=== PATIENT | female | born 1950 | race Caucasian/White ===

== ENCOUNTER → 2018-12-02 10:46 | Outpatient (CLI) | payer MEDICARE, OTHER, SELFPAY ==
--- NOTE | 2018-12-02 | DI.MG.S_ITS ---
BILATERAL DIGITAL SCREENING MAMMOGRAM 3D/2D WITH CAD: 12/02/2018 CLINICAL: Routine screening. Family history of breast cancer. Comparison is made to exams dated: 11/01/2017 mammogram, 02/27/2017 mammogram, 08/03/2016 mammogram, and 08/01/2015 mammogram - [facility]. There are scattered fibroglandular elements in both breasts. Current study was also evaluated with a Computer Aided Detection (CAD) system. There are benign calcifications in both breasts. No significant masses, calcifications, or other findings are seen in either breast. There has been no significant interval change. IMPRESSION: There is no mammographic evidence of malignancy. A 1 year screening mammogram is recommended. This exam was interpreted at Station ID: [id number]. NOTE: For mammograms, a report in lay terms will be sent to the patient. Approximately 15% of breast malignancies will not be visualized mammographically. In the management of a palpable breast mass, a negative mammogram must not discourage biopsy of a clinically suspicious lesion. Electronically Signed By: Ted snyder/clinton:12/02/2018 11:55:03 letter sent: Normal Exam ACR BI-RADS Category 2: Benign Finding(s) 3342F
== END ==
PROVIDERS: PCP Family Medicine; Visit Provider Family Medicine
DX: Z12.31 Encounter for screening mammogram for malignant neoplasm of breast (principal); Z80.3 Family history of malignant neoplasm of breast
CPT/HCPCS: 77063; 77067

== ENCOUNTER 2019-09-23 10:01 | Day surgery (SDC) | payer MEDICARE, OTHER, SELFPAY ==
--- NOTE | 2019-09-23 | PATH_ITS ---
[facility] Accession Number: [id number] . 01 Material submitted: . colon - RANDOM COLON BIOPSIES . 02 Diagnosis: Random Colon, Biopsies: Colonic mucosa with no diagnostic abnormality. Negative for active, chronic, and microscopic colitis. Negative for dysplasia and malignancy. . MRV 09/24/2019 1230 Local . 02 Electronically signed: . Ken Allison MD, PhD, Pathologist NPI- [id number] . 01 Gross description: . RANDOM COLON BIOPSIES: Received in formalin are multiple fragment(s) of abreu, soft tissue measuring 0.1 x 0.1 x 0.1 cm to 0.2 x 0.2 x 0.2 cm submitted entirely in 1 cassette(s) /[facility] 09/23/2019 2315 Local . 02 Pathologist provided ICD-10: K62.5 . 02 CPT . 505473 Performed at: 01 [facility] [address], [place], [place] [id number] MD Rich Case MD Phone: [phone] Performed at: 02 [facility] [address] [place], [place] [id number] MD Lona Davis MD Phone: [phone]
[2019-09-23 10:23] VITALS: BP 106/68; PULSE 77; RESP 15; TEMP 36.3; O2SAT 98; BMI 27.3
[2019-09-23] MEDS: SODIUM CHLORIDE 0.9% 1,000 ML 21 ML IV (10:33)
[2019-09-23] MEDS: fentaNYL 250 MCG/5 ML INJ IV (11:06)
[2019-09-23] MEDS: MIDAZOLAM 5 MG/5 ML VIAL IV (11:07)
--- NOTE | 2019-09-23 11:26 | PM.HP.1 ---
History of Present Illness History of Present Illness Date Patient Seen: 09/23/19 Time Patient Seen: 11:26 Chief complaint: [id number] Narrative: History of adenomatous colon polyps, rectal bleeding and urgency with looser stools Patient History Surgical History (Updated 12/31/17 @ 05:37 by Conversion Provider) Status post hemorrhoidectomy (09/16/17) Family & Social History Social History: household members spouse Tobacco & Substance use: Smoking Status Former smoker alcohol intake current alcohol intake frequency other Substance Use Type does not use Meds Home Medications and Allergies Home Medications Medication Instructions Recorded Confirmed Type Stelara 45 mg SQ SEEINSTR #0 06/14/17 09/23/19 History atorvastatin [Lipitor] 20 mg PO HS #0 06/14/17 09/23/19 History hydrochlorothiazide 25 mg PO BEDTIME #0 06/14/17 09/23/19 History lisinopril 10 mg PO BEDTIME #0 06/14/17 09/23/19 History methotrexate sodium 15 mg PO QWEEK #0 09/10/17 09/23/19 History escitalopram oxalate 20 mg PO BEDTIME #0 09/12/17 09/23/19 History oxycodone 5 mg PO PRN PRN 09/23/19 09/23/19 History Allergies Allergy/AdvReac Type Severity Reaction Status Date / Time adhesive tape [ADHESIVE TAPE] Allergy Severe LISTED Verified 09/23/19 10:14 SEVERE WITHOUT REACTION GIVEN hydrocodone [HYDROCODONE] Allergy Mild rash Verified 09/23/19 10:14 latex AdvReac Verified 09/23/19 10:13 Exam Vital Signs (past 8 hours): - 09/23/19 10:23 Temperature 97.3 F L Pulse Rate 77 Respiratory Rate 15 Blood Pressure 106/68 Pulse Oximetry 98 Oxygen Delivery Method Room Air Narrative Exam Narrative: Oropharynx free of lesions Chest clear to auscultation percussion Cardiac exam reveals no S3 or murmur Assessment & Plan Assessment & Plan narrative: History of adenomatous colon polyps with rectal bleeding and urgency with loose stools need for colonoscopy with biopsy. Risks, benefits, alternatives have been explained.
--- NOTE | 2019-09-23 11:28 | PM.OP.ENDO ---
Operative Date/Time/Diagnoses Date of procedure: 09/23/19 Time of procedure: 11:29 Pre-op diagnosis: See indication Procedure & Clinicians Study performed: Colonoscopy Same procedure as scheduled: Yes Indications: History of adenomatous colon polyps with rectal bleeding urgency and looser stools Surgeon: Padmaja Kerns Procedure Notes Procedure in detail: After informed consent was obtained the patient was placed in left lateral decubitus position. The video colonoscope was introduced the rectum slowly advanced to cecum. Preparation was good. On slow withdrawal mucosa was carefully examined. The scope was removed. The patient tolerated procedure well. Blood loss none Complications none Sedation Total sedation time 20 minutes Versed 4 mg fentanyl 100 mg IV titration Findings 1. Totally normal colonic mucosa biopsies taken to rule out microscopic colitis randomly 2. Mild perianal inflammation on retroflexed view without significant hemorrhoids. Anal sphincter is somewhat loose as well. Will merely await biopsies and contact the patient. She is doing quite well on 1 Imodium a day having no accidents and having less urgency. I told her she can take 2 per day if she needs to.
[2019-09-23 11:57] VITALS: BP 95/63; PULSE 75; RESP 16; TEMP 37.1; O2SAT 97
[2019-09-23 12:08] VITALS: BP 92/50; PULSE 65; RESP 16; O2SAT 95
[2019-09-23 12:25] VITALS: BP 88/57; PULSE 70; RESP 16; O2SAT 98
[2019-09-23 12:38] VITALS: BP 96/58; PULSE 80; RESP 16; O2SAT 96
== END 2019-09-23 12:43 | disposition home or self-care (01) ==
PROVIDERS: PCP Family Medicine; Visit Provider Internal Medicine Gastroenterology
PROC: 0DJD8ZZ Inspection of Lower Intestinal Tract, Via Natural or Artificial Opening Endoscopic (ICD-10-PCS; CPT 45378; principal; 2019-09-23 11:00)
DX: K62.5 Hemorrhage of anus and rectum (principal); R19.4 Change in bowel habit; Z86.010 Personal history of colon polyps; I10 Essential (primary) hypertension; M79.7 Fibromyalgia; E78.00 Pure hypercholesterolemia, unspecified; E03.9 Hypothyroidism, unspecified; L40.9 Psoriasis, unspecified
CPT/HCPCS: 45378; J2250; J3010

== ENCOUNTER → 2020-03-14 12:05 | Outpatient (CLI) | payer MEDICARE, OTHER, SELFPAY ==
--- NOTE | 2020-03-14 12:22 | DI.MG.S_ITS ---
Patient Name: NIDIA OWENS date: 1950 Sex: F Attending Physician: LELIA Indications: Date: 03/14/2020 12:19 At the request of: STEVE ROWELL Procedure: MM screening mammo BI BILATERAL DIGITAL SCREENING MAMMOGRAM 3D/2D WITH CAD: 03/14/2020 CLINICAL: Routine screening. Family history of breast cancer. Comparison is made to exams dated: 12/02/2018 mammogram, 11/01/2017 mammogram, and 02/27/2017 mammogram - [facility]. There are scattered fibroglandular elements in both breasts. Current study was also evaluated with a Computer Aided Detection (CAD) system. There is a new 4 mm oval asymmetry with punctate calcifications in the left breast sub-areolar depth inferior region seen on the mediolateral oblique view only. No other significant masses, calcifications, or other findings are seen in either breast. IMPRESSION: INCOMPLETE: NEEDS ADDITIONAL IMAGING EVALUATION The new 4 mm oval asymmetry in the left breast is indeterminate. Additional views with possible ultrasound are recommended. This exam was interpreted at Station ID: [id number]. NOTE: For mammograms, a report in lay terms will be sent to the patient. Approximately 15% of breast malignancies will not be visualized mammographically. In the management of a palpable breast mass, a negative mammogram must not discourage biopsy of a clinically suspicious lesion. Electronically Signed By: Katelyn palacios/clinton:03/14/2020 17:47:39 letter sent: Additional Imaging Needed ACR BI-RADS Category 0: Incomplete 3340F Continued Report - Page 2 of 2 Patient Name: NIDIA OWENS date: 1950 Sex: F Attending Physician: LELIA Indications: Date: 03/14/2020 12:19 At the request of: STEVE ROWELL Procedure: MM screening mammo BI
== END ==
PROVIDERS: PCP Family Medicine; Referring Provider Family Medicine; Visit Provider Family Medicine
DX: Z12.31 Encounter for screening mammogram for malignant neoplasm of breast (principal); Z80.3 Family history of malignant neoplasm of breast
CPT/HCPCS: 77063; 77067

== ENCOUNTER → 2020-04-05 12:14 | Outpatient (CLI) | payer MEDICARE, OTHER, SELFPAY ==
--- NOTE | 2020-04-05 | DI.MG.S_ITS ---
UNILATERAL LEFT DIGITAL DIAGNOSTIC MAMMOGRAM 3D/2D WITH ADDITIONAL VIEWS: 04/05/2020 Comparison is made to exams dated: 03/14/2020 mammogram, 12/02/2018 mammogram, and 11/01/2017 mammogram - [facility]. There are scattered fibroglandular elements in left breast. The previously seen asymmetry in the left breast is no longer visualized and presumably represents normal superimposed breast tissue. No significant masses, calcifications, or other findings are seen in the breast. IMPRESSION: NEGATIVE There is no mammographic evidence of malignancy. A 1 year screening mammogram is recommended. This exam was interpreted at Station ID: [id number]. NOTE: For mammograms, a report in lay terms will be sent to the patient. Approximately 15% of breast malignancies will not be visualized mammographically. In the management of a palpable breast mass, a negative mammogram must not discourage biopsy of a clinically suspicious lesion. Electronically Signed By: Anthony whitaker/clinton:04/05/2020 13:26:58 letter sent: Normal Exam ACR BI-RADS Category 1: Negative 3341F
== END ==
PROVIDERS: PCP Family Medicine; Referring Provider Family Medicine; Visit Provider Family Medicine
DX: R92.8 Other abnormal and inconclusive findings on diagnostic imaging of breast (principal)
CPT/HCPCS: 77065; G0279

== ENCOUNTER → 2021-03-20 15:22 | Outpatient (CLI) | payer MEDICARE, OTHER, SELFPAY ==
--- NOTE | 2021-03-20 15:26 | DI.MG.S_ITS ---
BILATERAL DIGITAL SCREENING MAMMOGRAM 3D/2D WITH CAD: 03/20/2021 CLINICAL: Routine screening. Family history of breast cancer. Comparison is made to exams dated: 04/05/2020 mammogram, 03/14/2020 mammogram, 12/02/2018 mammogram, 11/01/2017 mammogram, 02/27/2017 mammogram, and 08/03/2016 mammogram - [facility]. There are scattered fibroglandular elements in both breasts. Current study was also evaluated with a Computer Aided Detection (CAD) system. There is a benign calcification in the right breast. There also are benign calcifications in the left breast. No significant masses, calcifications, or other findings are seen in either breast. There has been no significant interval change. IMPRESSION: BENIGN There is no mammographic evidence of malignancy. A 1 year screening mammogram is recommended. This exam was interpreted at Station ID: [id number]. NOTE: For mammograms, a report in lay terms will be sent to the patient. Approximately 15% of breast malignancies will not be visualized mammographically. In the management of a palpable breast mass, a negative mammogram must not discourage biopsy of a clinically suspicious lesion. Electronically Signed By: Tristen jain/clinton:03/20/2021 17:07:02 letter sent: Normal Exam ACR BI-RADS Category 2: Benign Finding(s) 3342F
== END ==
PROVIDERS: PCP Family Medicine; Referring Provider Family Medicine; Visit Provider Family Medicine
DX: Z12.31 Encounter for screening mammogram for malignant neoplasm of breast (principal); Z80.3 Family history of malignant neoplasm of breast
CPT/HCPCS: 77063; 77067

== ENCOUNTER → 2022-06-12 12:39 | Outpatient (CLI) | payer MEDICARE, OTHER, SELFPAY ==
--- NOTE | 2022-06-12 12:42 | DI.MG.S_ITS ---
BILATERAL DIGITAL SCREENING MAMMOGRAM 3D/2D WITH CAD: 06/12/2022 CLINICAL: Routine screening. Family history of breast cancer. Comparison is made to exams dated: 03/20/2021 mammogram, 04/05/2020 mammogram, 03/14/2020 mammogram, and 12/02/2018 mammogram - [facility]. There are scattered areas of fibroglandular density in both breasts (category b / 25%-50% glandular tissue). Current study was also evaluated with a Computer Aided Detection (CAD) system. There is a benign calcification in the right breast. There also are benign calcifications in the left breast. No significant masses, calcifications, or other findings are seen in either breast. There has been no significant interval change. IMPRESSION: BENIGN There is no mammographic evidence of malignancy. A 1 year screening mammogram is recommended. Based on the Tyrer Cuzick model (a risk assessment model) the patient's lifetime risk is 11.8% and her 10 year risk is 8.8%. According to the ACR, ACS, and NCCN guidelines, an annual breast MRI exam along with mammogram is recommended if the patient's lifetime risk is 20% or greater. This exam was interpreted at Station ID: [id number]. NOTE: For mammograms, a report in lay terms will be sent to the patient. Approximately 15% of breast malignancies will not be visualized mammographically. In the management of a palpable breast mass, a negative mammogram must not discourage biopsy of a clinically suspicious lesion. Electronically Signed By: Ted snyder/clinton:06/13/2022 07:34:28 letter sent: Normal Exam ACR BI-RADS Category 2: Benign Finding(s) 3342F
== END ==
PROVIDERS: PCP Family Medicine; Referring Provider Family Medicine; Visit Provider Family Medicine
DX: Z12.31 Encounter for screening mammogram for malignant neoplasm of breast (principal); Z80.3 Family history of malignant neoplasm of breast
CPT/HCPCS: 77063; 77067

== ENCOUNTER → 2023-05-07 11:17 | Outpatient (CLI) | payer MEDICARE, OTHER, SELFPAY ==
[2023-05-07 11:56] LABS: Add Manual Diff / Slide Review NO; Basophils Absolute Auto 100 /uL (0-100); Basophils Percent Auto 1.3 % (0-2); Eosinophils Absolute Auto 500 /uL (0-450); Eosinophils Percent Auto 8.2 % (2-4); Hematocrit 39.3 % (36-46); Hemoglobin 13.3 g/dL (12.0-16.0); Lymphocytes Absolute Auto 1800 /uL (1100-4500); Lymphocytes Percent Auto 26.8 % (25-40); Mean Corpuscular HGB Conc 33.8 % (30-36); Mean Corpuscular Hemoglobin 31.4 PG (26-34); Mean Corpuscular Volume 92.8 fL (80-100); Monocytes Absolute Auto 600 /uL (0-900); Monocytes Percent Auto 9.7 % (3-14); Neutrophils Absolute Auto 3600 /uL (1500-7000); Platelet Count 190 X10^3/uL (150-400); Red Blood Cell Count 4.24 X10^6/uL (4.0-5.2); Red Cell Distribution Width 15.5 % (11.6-14.8); White Blood Cell Count 6.7 X10^3/uL (4.5-11.0)
[2023-05-07 12:04] LABS: Blood Urea Nitrogen 16 mg/dL (7-17); Calcium 8.9 mg/dL (8.4-10.2); Carbon Dioxide 27 mmol/L (22-32); Chloride 104 mmol/L (98-107); Estimated Glomerular Filt Rate > 60 mL/min (>60); Glucose 89 mg/dL (80-110); HEMOLYSIS < 15 (0-50); Sodium 136 mmol/L (137-145)
== END ==
PROVIDERS: PCP Family Medicine; Referring Provider Orthopaedic Surgery; Visit Provider Orthopaedic Surgery
DX: Z01.812 Encounter for preprocedural laboratory examination (principal); R73.9 Hyperglycemia, unspecified; Z01.818 Encounter for other preprocedural examination; N39.0 Urinary tract infection, site not specified
CPT/HCPCS: 36415; 80048; 83036; 85025; 93005; 93010

== ENCOUNTER → 2023-05-28 14:33 | Outpatient (CLI) | payer MEDICARE, OTHER, SELFPAY ==
--- NOTE | 2023-05-28 14:37 | DI.RAD.S_ITS ---
PROCEDURE: XR CHEST 2V INDICATIONS: Essential (primary) hypertension TECHNIQUE: 2 views of the chest were acquired. COMPARISON: [facility], , CHEST 2 VIEW, 08/03/2016, 11:47. FINDINGS: Surgical changes and devices: Partially visualized cervical spine fixation hardware Lungs and pleura: Lungs are clear. No pleural effusions or pneumothorax. Elevated left hemidiaphragm. Mediastinum: Mediastinal contours are normal. Heart size is normal. Bones and chest wall: No suspicious bony abnormalities. Soft tissues appear unremarkable. IMPRESSION: No acute cardiopulmonary abnormality is seen. Dictated by: Raquel Crawford MD, PhD on 05/28/2023 at 14:49 Approved by: Raquel Crawford MD, PhD on 05/28/2023 at 14:49
== END ==
PROVIDERS: PCP Family Medicine; Referring Provider Family Medicine; Visit Provider Family Medicine
DX: I10 Essential (primary) hypertension (principal)
CPT/HCPCS: 71046

== ENCOUNTER → 2023-07-31 15:00 | Outpatient (CLI) | payer MEDICARE, OTHER, SELFPAY ==
--- NOTE | 2023-07-31 | DI.CT.S_ITS ---
PROCEDURE: CT CHEST WO CON INDICATIONS: ANEURYSM TECHNIQUE: Noncontrast 5 mm thick sections acquired from the pulmonary apices to the posterior costophrenic angles. 1 mm lung window, 5 mm thick coronal and sagittal and 7 mm axial MIP reformats were then acquired. For radiation dose reduction, the following was used: automated exposure control, adjustment of mA and/or kV according to patient size. COMPARISON: None. FINDINGS: Image quality: Excellent. Lungs and pleura: No acute air space opacities. No pleural effusions or pneumothorax. Central and peripheral airways are patent and normal in caliber. Mediastinum: Heart size is normal. The coronary arteries have atherosclerotic calcifications. Mitral annular calcifications. The ascending aorta measures 3.8 cm, within normal limits. No pericardial effusion. No mediastinal adenopathy by size criteria. Thoracic aorta and central pulmonary arteries are normal in size. Esophagus is normal in caliber. No hiatal hernia. Bones and chest wall: No suspicious bony lesions. Rightward curvature of the thoracic spine. No vertebral body compression fractures. No axillary or supraclavicular adenopathy by size criteria. No thyroid nodules which require sonographic follow up, per consensus guidelines. Upper Abdomen: Visualized upper abdominal solid organs and bowel loops appear normal in the absence of contrast. IMPRESSION: 1. No acute abnormality. 2. No aneurysm identified. 3. Coronary artery calcifications and mitral annular calcifications. Dictated by: Matt Meza M.D. on 07/31/2023 at 16:39 Approved by: Matt Meza M.D. on 07/31/2023 at 16:43
--- NOTE | 2023-07-31 | DI.MG.S_ITS ---
BILATERAL DIGITAL SCREENING MAMMOGRAM 3D/2D WITH CAD: 07/31/2023 CLINICAL: Routine screening. Family history of breast cancer. Comparison is made to exams dated: 06/12/2022 mammogram, 03/20/2021 mammogram, 04/05/2020 mammogram, and 03/14/2020 mammogram - [facility]. There are scattered areas of fibroglandular density in both breasts (category b / 25%-50% glandular tissue). Current study was also evaluated with a Computer Aided Detection (CAD) system. There is a benign calcification in the right breast. There also are benign calcifications in the left breast. No significant masses, calcifications, or other findings are seen in either breast. There has been no significant interval change. IMPRESSION: BENIGN There is no mammographic evidence of malignancy. A 1 year screening mammogram is recommended. Based on the Tyrer Cuzick model (a risk assessment model) the patient's lifetime risk is 11.1% and her 10 year risk is 9.1%. According to the ACR, ACS, and NCCN guidelines, an annual breast MRI exam along with mammogram is recommended if the patient's lifetime risk is 20% or greater. This exam was interpreted at Station ID: [id number]. NOTE: For mammograms, a report in lay terms will be sent to the patient. Approximately 15% of breast malignancies will not be visualized mammographically. In the management of a palpable breast mass, a negative mammogram must not discourage biopsy of a clinically suspicious lesion. Electronically Signed By: Jc hatch/clinton:08/01/2023 11:28:14 letter sent: Normal Exam ACR BI-RADS Category 2: Benign Finding(s) 3342F
== END ==
PROVIDERS: PCP Family Medicine; Referring Provider Family Medicine; Visit Provider Family Medicine
DX: Z12.31 Encounter for screening mammogram for malignant neoplasm of breast (principal); I72.9 Aneurysm of unspecified site; Z80.3 Family history of malignant neoplasm of breast; I25.10 Atherosclerotic heart disease of native coronary artery without angina pectoris
CPT/HCPCS: 71250; 77063; 77067

== ENCOUNTER 2023-10-04 11:03 | Day surgery (SDC) | payer MEDICARE, OTHER, SELFPAY ==
[2023-09-25 09:31] VITALS: BMI 30.2
[2023-10-04] VITALS (19 sets, daily range): BP systolic 98–151; BP diastolic 61–83; PULSE 62–80; RESP 10–16; TEMP 36.2–37; O2SAT 93–97; BMI 31.1
--- NOTE | 2023-10-04 06:00 | DI.RAD.S_ITS ---
PROCEDURE: XR KNEE RT 1TO2V INDICATIONS: TKA TECHNIQUE: 2 view(s) of the knee acquired. COMPARISON: [facility], , KNEE 3V RIGHT, 01/18/2014, 14:18. FINDINGS: Bones: Patient is status post knee joint arthroplasty. Hardware components are in expected positions. Visualized bony structures are intact. Soft tissues: Overlying postoperative changes are noted. IMPRESSION: Expected post-operative appearance of a knee arthroplasty. Dictated by: Karyn Yuan M.D. on 10/04/2023 at 17:32 Approved by: Karyn Yuan M.D. on 10/04/2023 at 17:32
[2023-10-04] MEDS: LACTATED RINGERS 1,000 ML 42 ML IV ×2 (11:52→17:49)
[2023-10-04] MEDS: CELECOXIB 200 MG CAPSULE PO (11:53)
[2023-10-04] MEDS: ACETAMINOPHEN 325 MG TABLET 975 MG PO (11:53)
[2023-10-04] MEDS: VANCOMYCIN 1,000 MG/200 ML PIGGYBACK 200 MG IV (11:56)
[2023-10-04] MEDS: SCOPOLAMINE 1 PATCH TOP (12:36)
--- NOTE | 2023-10-04 13:11 | PM.PREOP ---
Pre-operative Note Interval Note History & Physical reviewed/Exam performed by Physician: Yes Changes to H&P: No
--- NOTE | 2023-10-04 13:12 | PM.OP.1 ---
Operative Date/Time/Diagnoses Date of procedure: 10/04/23 Time of procedure: 13:25 Pre-op diagnosis: Severe right knee OA Post-op diagnosis: same Procedure & Clinicians Procedure: Right total knee arthroplasty robotic assisted with Cori Same procedure as scheduled: Yes Indications: The patient has had progressively worsening right knee pain with radiographic changes consistent with arthritis. Non-operative management has failed and the patient has requested total knee replacement. The risks, benefits and alternatives to surgery were discussed with the patient prior to proceeding. Risks discussed included, but were not limited to, failure to relieve pain, stiffness, infection, nerve damage, deep venous thrombosis, pulmonary embolism, stroke, coma, heart attack, permanent paralysis and , as well as the potential need for eventual revision of the prosthetic. Surgeon: Mary Medellin Quality Nurse: Joby So Anesthesia Type: General Operative Notes Findings: Severe right knee osteoarthritis, good stability, adequate bone Closure Type: primary Specimen(s): none sent Prosthetic devices, grafts, tissues, transplants, or devices: Medellin and nephew suture and a BCS 2 size 7 femur, size 6 tibia, +9 poly, 35 x 7-1/2 mm patella Estimated Blood Loss (mL): 250 Tourniquet time (min): 118 Procedure in detail: The patient was seen in the pre-operative area, where the patient identified the right knee as the operative site and this was marked with my initials. The patient received pre-operative antibiotics, and was taken to the operating room and placed on the operative table in the supine position. After satisfactory anesthesia, a night time nanny out was performed. The right leg was encircled with a tourniquet about the proximal thigh, and the leg was prepared from the toes to the tourniquet with ChloroPrep in the usual fashion and draped through sterile drapes. The leg was elevated and exsanguinated with Eschmark bandage and the tourniquet inflated to [250] mmHg pressure. A PA was used during the procedure and was essential for intraoperative retraction and safe implantation of the components. The knee was approached through an approximately 18 cm incision centered over the patella and carried into the knee through a medial parapatellar arthrotomy. A portion of the medial and lateral meniscus was resected. Soft tissue was carefully mobilized around the patella the patella was measured with a caliper. Bone was resected from the patella and the patellar height was reconstituted with up an appropriate sized patellar component. A cover was then placed on the patella. A small amount of additional medial and lateral meniscus was resected. Osteophytes were removed from femur. PCL was released. José Miguel Vazquezy pins were placed in the femur and in the tibia the guide was placed in preparation for a robotic assisted navigation. The femur and the tibia were carefully mapped. The patient was placed through a range of motion in the center of rotation was determined. The femur was then carefully stressed and stressed and nonstress range of motion of the knee was collected and used for optimizing the intraoperative plan for the resection of the distal femur and proximal tibia. A plan was taken and progressively improved. Retractors were carefully placed. A bur was used for the distal femoral resection. The patient has AP diameter of the femur was slightly larger than the medial to lateral. A size 7 femoral component appeared to provide good holiness of the distal femoral guidiville anatomy. Finishing cuts were made for a size 7 femur. Retractors were carefully placed around the tibia and then the tibia was carefully navigated and the tibial cut was performed without difficulty. Residual lateral and medial meniscus was resected. The patient was placed in extension residual medial and lateral meniscus as well as any residual bone was carefully resected. [No] additional tibia was resected. Hemostasis was achieved especially posteriorly. Additional local was injected into the posterior capsule. The femoral component was trial was placed and the notch was finished. There was no evidence of notching. The posterior osteophytes and soft tissues were then removed. The posterior capsule was injected with part of a mixture of 60 ml 0.25% Marcaine mixed with 20 ml Exparel for post operative pain control. The remainder of this mixture was injected into the capsule and subcutaneous tissues during cement curing. The tibial and femoral components were then placed and the knee placed through a range of motion. Range of motion was [0-130], with good stability throughout the range. The trials were then removed, and the tibia was finished. The bone was prepared with pulsatile lavage, and dried with a sponge. Cement was applied and the final prosthetics placed. Excess cement was removed during and after cement curing. A brief Betadine soak was performed. After confirming there was no extruded cement posteriorly, the final tibial insert was placed. The knee was copiously irrigated and the tourniquet deflated. Hemostasis was obtained with the Bovie cautery. The capsule was closed with interrupted nonabsorbable suture. The subcutaneous layer was closed with barbed sutures, and the skin with a running 3-0 V-Lock suture and Surgical glue. An Aquacel Ag dressing was applied and the patient was taken to recovery having tolerated the procedure well. Complications: none Post-operative Condition: stable Disposition: Acute Care Plan for aftercare: The patient will be maintained on a standard total knee replacement protocol with weight bearing as tolerated. The patient will receive aspirin and sequential compression devices for DVT prophylaxis. The patient will be discharged home when safe for the home environment.
[2023-10-04] MEDS: CEFAZOLIN 2 GM/100 ML PREMIX 100 ML IV ×2 (13:42→21:27)
[2023-10-04] MEDS: TRANEXAMIC ACID 1,000 MG VIAL 1000 MG INJ ×2 (13:42→16:00)
--- NOTE | 2023-10-04 14:02 | SUR.OPER ---
Supine on padded OR bed. Pillow under head, arms secured on padded armboards <90 degree abduction. Safety belt across torso. Non-operative leg secured with tape over blanket over lower leg. Operative leg secured in Baldomero positioner. Foam padded brace at thigh of operative leg.
[2023-10-04] MEDS: BUPIVACAINE LIPOSOME 266 MG/20 ML VIAL INJ (14:06)
[2023-10-04] MEDS: BUPIVACAINE 0.25% (PF) 60 ML, EPINEPHrine 0.3 MG INJ (14:06)
[2023-10-04] MEDS: LACTATED RINGERS 1,000 ML 100 ML IV (18:53)
[2023-10-04] MEDS: DOCUSATE 100 MG CAPSULE PO (21:25)
[2023-10-04] MEDS: ASPIRIN EC 81 MG TABLET PO (21:25)
[2023-10-04] MEDS: ATORVASTATIN 20 MG TABLET 10 MG PO (21:25)
[2023-10-04] MEDS: ESCITALOPRAM 10 MG TABLET 20 MG PO (21:27)
[2023-10-05 00:38] VITALS: BP 109/62; PULSE 65; RESP 16; TEMP 36.7; O2SAT 96
[2023-10-05] MEDS: LACTATED RINGERS 1,000 ML 100 ML IV (02:00)
--- NOTE | 2023-10-05 02:51 | PC.NURSE ---
Patient drowsy at shift change but alert and oriented at time of assessment but does seem forgetful and will ask same question several times during a conversation. Breath sounds diminished but CTA and was on 4L/min oxygen per NC at shift change but have been lowering oxygen to wean off and is currently at 2L/min with sat at 96% so now decreased to 1L/min; on continuous oximetry. HRR but at bedtime BP was soft with systolic in the 90's so both HCTZ and Lisinopril held. Denied nausea. BT present and has already passed flatus. Did have difficulty urinating and at 2300 had bladder scan of 490. Attempted to in/out cath x4 (3 different RN's attempted) before able to get straight cath in and 510cc urine drained from bladder. Is able to assist with repositioning. Did get up to BSC with walker and 2 assists. Aquacel dressing to right knee w/arley wrap covering is CDI. CMS is intact. Wearing bilateral calf SCD's. Stated pain was tolerable at 3-4/10 and declined offer of pain medications. Fall risk score is moderate and bed alarm is activated.
[2023-10-05] MEDS: CEFAZOLIN 2 GM/100 ML PREMIX 100 ML IV (05:52)
[2023-10-05] MEDS: LEVOTHYROXINE 50 MCG TABLET PO (05:52)
[2023-10-05] MEDS: OXYCODONE IR 5 MG TABLET PO (06:36)
[2023-10-05] MEDS: DOCUSATE 100 MG CAPSULE PO ×2 (08:56→20:26)
[2023-10-05] MEDS: ASPIRIN EC 81 MG TABLET PO ×2 (09:00→20:25)
--- NOTE | 2023-10-05 10:10 | PT.IIE ---
Current Diagnoses Unilateral primary osteoarthritis, right knee (10/04/23) Surgery Performed Operation Date: 10/04/23 12:30 Actual Procedures p Total Knee Arthroplasty - Robot(Right) - Mary Medellin MD Surgical History (Last Updated 09/25/23 @ 10:11 by Doretha Urena, RN) H/O laminectomy History of biopsy History of excision of pilonidal cyst History of hysterectomy History of lumbar spinal fusion History of orthopedic surgery Hx of bilateral cataract extraction Hx of colonoscopy Hx of fusion of cervical spine Hx of tonsillectomy S/P cataract extraction and insertion of intraocular lens Status post hemorrhoidectomy (09/16/17) Medical History (Last Updated 09/26/23 @ 07:30 by Doretha Urena, JENI) Arthritis Basal cell carcinoma Chronic diarrhea Cystocele with rectocele Depression History of Mohs micrographic surgery for skin cancer HLD (hyperlipidemia) HTN (hypertension) Psoriatic arthritis Physical Therapy Inpatient Evaluation/Re-Eval M1 PT/OT-IP Prior Functional Status Start: 10/05/23 12:44 Freq: NEEDED Status: Active Protocol: Document 10/05/23 10:10 AB (Rec: 10/05/23 12:59 AB [id number]) Medical Review Prior Functional Status Medical History Reviewed Yes Communication able to make needs known; pt is slightly sleepy with confusion Mobility and Gait pt's spouse and son in room and provided PLOF and home set up. stated that pt was independent with all mobilities and ambulation without AD Social History Household Members spouse Living Arrangements House Number of Floors (Floors) Two Floors Number of Stairs To Enter/Railing? 1 step to enter the house 14 steps B rails to get to 2nd floor bedroom Home Environment Standard Height Toilet,Tub/ Shower Home Equipment Front Wheel Walker,Raised Toilet Seat w/Armrests,Shower Seat with Backrest,Hand Held Shower,Grab Bars In Shower M2 PT-IP Current Condition Start: 10/05/23 12:44 Freq: NEEDED Status: Active Protocol: Document 10/05/23 10:10 AB (Rec: 10/05/23 12:59 AB [id number]) Physical Therapy Current Condition Current Condition Evaluation Date 10/05/23 Treatment Diagnosis s/p R TKA; difficulty in walking Onset Date 10/04/23 M3 PT-IP Subjective Start: 10/05/23 12:44 Freq: NEEDED Status: Active Protocol: Document 10/05/23 10:10 AB (Rec: 10/05/23 12:59 AB [id number]) Subjective Physical Therapy Visit Type Type Initial Evaluation Visit Start Time 10:10 Visit Stop Time 11:10 Number of SWEEP PRESS OPERATOR Visits 0 Physical Therapy Visit Comments Patient Comments agreeable to do PT Therapy Pain Assessment Pain When Pain Assessed At Rest Pain Present Pain Present Pain Reported Location right knee Intensity 8 Scale Used Numeric (0 - 10) Pain Management Techniques Apply Cold,Distraction, Modification of Treatment,Re- positioning,Timing of Activity with Medications M4 PT-IP Mobility and Gait Start: 10/05/23 12:44 Freq: NEEDED Status: Active Protocol: Document 10/05/23 10:10 AB (Rec: 10/05/23 12:59 AB [id number]) PT-Bed Mobility Assessment Sit to Supine Sit to Supine Maximum Assistance,1 Person Assistance,Head of Bed Elevated PT-Transfer Assessment Sit to and From Stand Sit to and from Stand Maximum Assistance,1 Person Assistance,2 Person Assistance ,Use of Upper Extremities Equipment Transfer Assistive Device Gait Belt,Front Wheeled Walker Orthotic/Prosthetic Devices or Brace: No Transfers Transfer Destination Toilet Transfer Technique ambulated Transfer Ability Level of Assist Maximum Assistance,1 Person Assistance,Use of Upper Extremities Comments Mobility Comments pt supine in bed and is very restless and felisa confusion and was trying to get up out of the bed. pt instructed to stay in bed for safety until PT is ready to assist her. pt 's spouse and son in room. obtained PLOF and home set up from family. pt requested to use the toilet . completed supine to sit max A and max cues. required 3 attempts to complete task. pt completed sit to stand x 3 attempts max A x 1-2 and max cues. pt with heavy UE use and not pushing LE to stand. max cues and assist provided. pt ambulated to the toilet using FWW max a and max cues. pt with forward trunk position with increases with ambulation distance and family stated that pt has back problems. also noted RLE external rotation. cued pt to correct. pt with decrease cognition and with difficutly following instructions. also needed max A for FWW use. pt required max A for controlled descent to the toilet. required assist with brief management. required max A x 1-2 for sit to stand from the toilet using grab bar. 3 attempts needed to complete task. pt required max A for standing balance using FWW for support while NAC assisted pt with hygiene care and brief management. pt ambulated to the chair using FWW max A and max cues. positioned pt on the chair. call light and table placed within reach. informed pt and family that pt is not ready to d/c home at this time. caregiver training set up this afternoon at ~ 130 -2pm Gait Assessment Gait Gait Assistance Required: Maximum Assistance Distance (Feet) 20 Able to Maintain Weight Bearing Status Yes During Gait Assistive Devices Assistive Device Gait Belt,Front Wheeled Walker Orthotic/Prosthetic Devices or Brace: No Gait Deviations General Gait Pattern Antalgic,Decreased Stride Length,Decreased Feet Clearance,Flexed Trunk Factors Limiting Gait Function Factors Limiting Gait Function Decreased Activity Tolerance, Decreased Strength,Difficulty Following Directions,Limited Range of Motion,Pain,Poor Balance,Poor Safety Awareness PT-Balance Assessment Sitting Balance and Reactions Static Sitting Balance Ability Good Dynamic Sitting Balance Ability Fair Standing Balance and Reactions Static Standing Balance Ability Poor Dynamic Standing Balance Ability Poor Device Used FWW M5 PT-IP Objective Assessments Start: 10/05/23 12:44 Freq: NEEDED Status: Active Protocol: Document 10/05/23 10:10 AB (Rec: 10/05/23 12:59 AB [id number]) Orientation Orientation/Cognition Level of Alertness Confusional State Orientation Name Safety Awareness Decreased Safety Awareness Memory Description Short Term Impaired Gross Range of Motion Lower Extremity ROM Assessment Within Functional Limits Strength Lower Extremity Strength Assessment Right Impaired Hip 3+/5 Knee 3+/5 Muscle Tone Muscle Tone WNL Yes M6 PT-IP Treatment Start: 10/05/23 12:44 Freq: NEEDED Status: Active Protocol: Document 10/05/23 10:10 AB (Rec: 10/05/23 12:59 AB [id number]) Physical Therapy Treatment Exercises Exercises Heel Slides Education Education Provided Precautions,Weight Bearing Status,Post-Op Packet,Safety M7 PT-IP Assessment and Plan Start: 10/05/23 12:44 Freq: NEEDED Status: Active Protocol: Document 10/05/23 10:10 AB (Rec: 10/05/23 12:59 AB [id number]) PT Summary Assessment and Plan Potential Rehabilitation Potential Fair Status of Condition at Evaluation Evolving Summary Impairments Pain,ROM,Strength,Balance, Coordination,Sensation,Tone, Cognition,Bed Mobility, Transfers,Gait,Activity Tolerance Assessment Summary pt is a 73 y/o F s/p R TKA POD 1. pt requiring max A x 1-2 with transfers and max A for ambulation using FWW. pt with confusion and with difficutly following directions and has decrease safety awareness. caregiver training set up at 130pm and will continue to assess progress. d/c plan: SNF vs home with 24/ and HHPT . Goals Bed Mobility Goal Minimal Assistance Transfer Goal Minimal Assistance,Front Wheeled Walker Gait Goal Minimal Assistance,Front Wheel Walker Gait Distance 50 Other Goals improve bed mobility, transfers and ambulation using LRAD ~ 150 ft SBA up/down 1 step using FWW SBA up/down 14 stteps B rails SBA Days to Meet Goals 10 Frequency of Treatment Frequency Of Treatment Twice a Day Treatment Plan Physical Therapy Treatment Plan Bed Mobility Training,Transfer Training,Gait Training, Therapeutic Exercise,Balance Retraining,Post Op Education, Discharge Planning,Hot or Cold Pack,Neuromuscular Re-ed, Coordination Retraining,Manual Therapy Weight Bearing Status Weight Bearing Status Weight Bear as Tolerated Allowed Weight Bearing Amount (enter % RLE WBAT or #) (%) Recommendations To Nursing Amount of Assist Needed 2 Person Assist Discharge Recommendations PT Discharge Recommendations Home with 25/03 Assist Available,Home Health,SNF Rehab,Home vs SNF Transportation Needs at Discharge Private Vehicle,Wheelchair/ Cabulance
[2023-10-05 11:09] VITALS: BP 109/56; PULSE 68; RESP 18; TEMP 37.1; O2SAT 93
--- NOTE | 2023-10-05 11:29 | PM.DS.1 ---
History of Present Illness History of Present Illness Date Patient Seen: 10/05/23 Time Patient Seen: 11:29 Chief complaint: OPB Narrative: Operative Date/Time/Diagnoses Date of procedure: 10/04/23 Time of procedure: 13:25 Pre-op diagnosis: Severe right knee OA Post-op diagnosis: same Procedure & Clinicians Procedure: Right total knee arthroplasty robotic assisted with Cori Same procedure as scheduled: Yes Indications: The patient has had progressively worsening right knee pain with radiographic changes consistent with arthritis. Non-operative management has failed and the patient has requested total knee replacement. The risks, benefits and alternatives to surgery were discussed with the patient prior to proceeding. Risks discussed included, but were not limited to, failure to relieve pain, stiffness, infection, nerve damage, deep venous thrombosis, pulmonary embolism, stroke, coma, heart attack, permanent paralysis and , as well as the potential need for eventual revision of the prosthetic. Surgeon: Mary Medellin Utility Service Worker: Joby So Anesthesia Type: General Operative Notes Findings: Severe right knee osteoarthritis, good stability, adequate bone Closure Type: primary Specimen(s): none sent Prosthetic devices, grafts, tissues, transplants, or devices: Medellin and nephew suture and a BCS 2 size 7 femur, size 6 tibia, +9 poly, 35 x 7-1/2 mm patella Estimated Blood Loss (mL): 250 Tourniquet time (min): 118 Discharge Providers Provider Discharge Date: 10/05/23 Primary care physician: Sunil Pennington MD Consults: 09/25/23 10:48 Consult to Anesthesiology Routine Comment: Consulting Provider: Anesthesiologist Reason for consultation: PAC courtesy re: Cardiac work-up per prior anesthesia review 10/04/23 17:58 Consult to Discharge Planning Routine Comment: Consult to Occupational Therapy Evaluate & Treat Comment: Physician Instructions: Evaluate and treat Consult to Physical Therapy Evaluate & Treat Comment: Physician Instructions: postop TKA protocol Discharge provider: Linda Ledezma PA-C Summary Hospital Course Discharge Diagnosis: Right knee osteoarthritis, s/p right total knee arthroplasty Hospital Course: Ms Castro's hospital course was remarkable for a poor showing with PT at her initial evaluation. The pts RN indicated that the therapist felt she might be confused d/t pain medications. In speaking with the pt and her family, she does not appear to be confused. She is, at baseline, a bit hard of hearing. She tells me that she had difficulty understanding the therapist. She is also very tired; she and her family report that she hasn't slept in about 2 1/2 days. She was having quite a bit of pain during therapy, which also slowed her progress. We discussed making changes to her pain medications. She is on methotrexate and uses alcohol regularly; she reports elevated LFTs and that she has been told not to take Tylenol. Tylenol was d/c'd. She says IBPN does nothing for her; we will try celecoxib instead. Finally, I discussed adding cyclobenzaprine in small doses as needed for muscle spasm; she is amenable to this. Despite poor pain control and slow progress w/ PT, she would like to discharge later today if PM PT goes well. Her spouse and son are supportive of this. Exam Vital Signs (past 8 hours): - 10/05/23 07:30 10/05/23 11:09 Temperature 98.7 F Pulse Rate 68 Respiratory Rate 18 Blood Pressure 109/56 L Pulse Oximetry 93 Oxygen Delivery Method Room Air Nasal Cannula Oxygen Delivery Method Room Air,Nasal Cannula Oxygen Flow Rate 2 Narrative Exam Narrative: 5/5 strength in hip flexors, quadriceps, hamstrings, DF, PF, EHL on right. Sensation to light touch intact throughout RLE. Calf soft and compressible. CHANDLER over Aquacel CDI. Objective Labs 10/05/23 05:00 Labs: Laboratory Results - last 24 hr 10/05/23 05:00 Hgb 12.0 Hct 36.0 PFSH Medical History (Updated 09/26/23 @ 07:30 by Doretha Urena RN) HLD (hyperlipidemia) History of Mohs micrographic surgery for skin cancer Arthritis Cystocele with rectocele Basal cell carcinoma Depression Chronic diarrhea HTN (hypertension) Psoriatic arthritis Surgical History (Updated 09/25/23 @ 10:11 by Doretha Urena RN) Hx of bilateral cataract extraction History of biopsy Hx of colonoscopy History of excision of pilonidal cyst S/P cataract extraction and insertion of intraocular lens History of orthopedic surgery History of lumbar spinal fusion H/O laminectomy Hx of fusion of cervical spine History of hysterectomy Hx of tonsillectomy Status post hemorrhoidectomy (09/16/17) Social History household members: spouse Smoking Status: Former smoker alcohol intake: current Discharge Assessment & Plan Assessment and Plan Assessment: Right knee osteoarthritis, s/p right total knee arthroplasty Plan of Treatment: Discharge home later today if she makes adequate progress w/ PT this afternoon and her pain is well-controlled with oral medication. She has her rx for oxycodone at home; will send celecoxib and cyclobenzaprine to her pharmacy. ASA BID x 6 weeks for VTE prophylaxis, outpt PT, f/u in office in 2 weeks as scheduled. We discussed her baseline EtOH intake. She admits to drinking about 1 1/2 glasses of wine daily; her family confirms this. She said she did not drink for a couple days prior to surgery. My suspicion for withdrawal is low at this time, and she does not appear to be currently manifesting any symptoms. Discharge Plan Discharge Plan Patient Disposition: Home Provider Discharge Comment: Follow up with [facility] in 2 weeks. Discharge orders & Medications Discharge Orders: Discharge (Order); Ordered 10/05/23 Ordered By: Linda Ledezma Prescriptions: New cyclobenzaprine 10 mg Tablet 5 mg PO Q8HR PRN (Reason: Muscle Spasm) Qty: 15 0RF celecoxib [Celebrex] 200 mg Capsule 200 mg PO BID Qty: 60 0RF Continued lisinopril 10 MG tablet 10 mg PO BEDTIME Qty: 0 hydrochlorothiazide 25 MG tablet 25 mg PO BEDTIME Qty: 0 atorvastatin [Lipitor] 10 MG tablet 10 mg PO HS Qty: 0 methotrexate sodium 2.5 MG tablet 20 mg PO QWEEK Qty: 0 Rx Instructions: Takes on Wednesdays escitalopram oxalate [Lexapro] 20 MG tablet 20 mg PO BEDTIME Qty: 0 loperamide 2 mg Tablet 2 mg PO DAILY Rx Instructions: administer after each loose stool until symptoms controlled; do not exceed 8 mg per 24 hrs levothyroxine 25 mcg tablet 50 mcg PO DAILY ibuprofen 200 mg Capsule 800 mg PO DAILY Follow up/Referrals: Sunil Pennington MD [Primary Care Provider] - Mary Medellin MD [Physician] - 10/16/23 2:00 pm (Follow up w/ Dr Medellin at [facility] office in [place].) Diet/Activity/Treatments Diet: Diet as Tolerated Activity: Walk frequently! Weight bearing as tolerated. Cold/Heat Therapy: Ice to knee as needed for pain. Skin/Wound/Dressing Care Report to your healthcare provider any signs of infection, such as:: chills, fever, night sweats, unusual drainage and unusual redness Dressing: May remove CHANDLER wrap and shower on 10/07/2023. Leave dressing in place until follow up in office. No bathing or otherwise soaking incision. Call the office if the dressing becomes saturated inside. Visit Report/Discharge Packet Instructions: How to Use an Incentive Spirometer, DI for Knee Replacement, DI for Constipation, How to Prevent Falls, DI for Prescription Opioid Use Stand Alone Forms: Patient Portal/API, Stroke Signs & Symptoms, Surgery Discharge Discharge Data Primary Care Provider: Sunil Pennington Attending Provider: Mary Medellin VTE Deep Vein Thrombosis/Pulmonary Embolism Present on Admission: No
[2023-10-05] MEDS: CELECOXIB 200 MG CAPSULE PO ×2 (11:44→20:26)
--- NOTE | 2023-10-05 12:51 | PT.IPTN ---
Current Diagnoses Unilateral primary osteoarthritis, right knee (10/04/23) Surgery Performed Operation Date: 10/04/23 12:30 Actual Procedures p Total Knee Arthroplasty - Robot(Right) - Mary Medellin MD Physical Therapy Treatment Note M2 PT-IP Current Condition Start: 10/05/23 12:44 Freq: NEEDED Status: Active Protocol: Document 10/05/23 10:10 AB (Rec: 10/05/23 12:59 AB [id number]) Physical Therapy Current Condition Current Condition Evaluation Date 10/05/23 Treatment Diagnosis s/p R TKA; difficulty in walking Onset Date 10/04/23 M3 PT-IP Subjective Start: 10/05/23 12:44 Freq: NEEDED Status: Active Protocol: Document 10/05/23 13:21 ZF (Rec: 10/05/23 13:33 ZF [id number]) Subjective Physical Therapy Visit Type Type Treatment Note Visit Start Time 12:51 Visit Stop Time 13:11 Number of MESH CUTTER Visits 1 Physical Therapy Visit Comments Patient Comments Pt requesting to get back in bed, OUTSIDE MACHINIST APPRENTICE requested assist with transfer. Therapy Pain Assessment Pain When Pain Assessed At Rest Pain Present Pain Present Pain Reported Location right knee Pain Management Techniques Apply Cold,Distraction, Modification of Treatment,Re- positioning,Timing of Activity with Medications M4 PT-IP Mobility and Gait Start: 10/05/23 12:44 Freq: NEEDED Status: Active Protocol: Document 10/05/23 13:21 ZF (Rec: 10/05/23 13:33 ZF [id number]) PT-Bed Mobility Assessment Sit to Supine Sit to Supine Maximum Assistance,1 Person Assistance,Head of Bed Elevated PT-Transfer Assessment Sit to and From Stand Sit to and from Stand Maximum Assistance,1 Person Assistance,2 Person Assistance ,Use of Upper Extremities Equipment Transfer Assistive Device Gait Belt,Front Wheeled Walker Orthotic/Prosthetic Devices or Brace: No Transfers Transfer Destination Bed,Toilet Transfer Technique Stand Step Pivot Transfer Ability Level of Assist Maximum Assistance,1 Person Assistance,Use of Upper Extremities Comments Mobility Comments Pt up in recliner after lunch, requests getting back into bed due to fatigue and discomfort. RN present and requests trying to urinate before getting back into bed. Commode positioned. STS from recliner requires MaxAx2, w/ 2ww. Max cueing for forward scoot, hand placement, foot positioned, forward lean. SPT w/FWW from recliner>commode> EOB requires MaxAx1, MinAx1. Max cueing required for set up and sequencing of transfer. Therapist cueing for proper alignment of R LE as pt tends to ER. STS from raised commode requires ModAx1. Pt dems confusion and difficulty following cues. Requires extended time to complete tasks. Sitting EOB>Supine Requires MaxA for LE management. Left pt in care of nursing. PT-Balance Assessment Sitting Balance and Reactions Static Sitting Balance Ability Good Dynamic Sitting Balance Ability Fair Standing Balance and Reactions Static Standing Balance Ability Poor Dynamic Standing Balance Ability Poor Device Used FWW M5 PT-IP Objective Assessments Start: 10/05/23 12:44 Freq: NEEDED Status: Active Protocol: Document 10/05/23 10:10 AB (Rec: 10/05/23 12:59 AB [id number]) Orientation Orientation/Cognition Level of Alertness Confusional State Orientation Name Safety Awareness Decreased Safety Awareness Memory Description Short Term Impaired Gross Range of Motion Lower Extremity ROM Assessment Within Functional Limits Strength Lower Extremity Strength Assessment Right Impaired Hip 3+/5 Knee 3+/5 Muscle Tone Muscle Tone WNL Yes M6 PT-IP Treatment Start: 10/05/23 12:44 Freq: NEEDED Status: Active Protocol: Document 10/05/23 13:21 ZF (Rec: 10/05/23 13:33 ZF [id number]) Physical Therapy Treatment Education Education Provided Precautions,Weight Bearing Status,Safety M7 PT-IP Assessment and Plan Start: 10/05/23 12:44 Freq: NEEDED Status: Active Protocol: Document 10/05/23 13:21 ZF (Rec: 10/05/23 13:33 ZF [id number]) PT Summary Assessment and Plan Potential Rehabilitation Potential Fair Summary Impairments Pain,ROM,Strength,Balance, Coordination,Sensation,Tone, Cognition,Bed Mobility, Transfers,Gait,Activity Tolerance Assessment Summary Pt dems significant fatigue and confusion this PM. Requires MaxAx1-2 for mobility . Recommend SNF vs Home and HHPT. Goals Bed Mobility Goal Minimal Assistance Transfer Goal Minimal Assistance,Front Wheeled Walker Gait Goal Minimal Assistance,Front Wheel Walker Gait Distance 50 Other Goals improve bed mobility, transfers and ambulation using LRAD ~ 150 ft SBA up/down 1 step using FWW SBA up/down 14 stteps B rails SBA Days to Meet Goals 10 Frequency of Treatment Frequency Of Treatment Twice a Day Treatment Plan Physical Therapy Treatment Plan Bed Mobility Training,Transfer Training,Gait Training, Therapeutic Exercise,Balance Retraining,Post Op Education, Discharge Planning,Hot or Cold Pack,Neuromuscular Re-ed, Coordination Retraining,Manual Therapy Weight Bearing Status Weight Bearing Status Weight Bear as Tolerated Allowed Weight Bearing Amount (enter % RLE WBAT or #) (%) Recommendations To Nursing Amount of Assist Needed Independent,Standby Assistance ,1 Person Assist Discharge Recommendations PT Discharge Recommendations Home with 25/03 Assist Available,Home Health,SNF Rehab,Home vs SNF Transportation Needs at Discharge Private Vehicle,Wheelchair/ Cabulance
--- NOTE | 2023-10-05 14:23 | PT-IP ANOTE ---
Pt will return at 10:30am Saturday for caregiver training. Pt was not appropriate at scheduled time today.
--- NOTE | 2023-10-05 14:25 | CM.DANOTE ---
Initial DCP Assessment Note Pt is a 73 yo female, resident of [place], POD1 from Rt TKA by Dr Medellin PCP: Sunil Pennington Payer: ABDIAZIZ/Allison Reviewed chart, post operative course complicated by pain and increased confusion. According to RN, patient out of it' and likely will not discharge today. [facility] Summary indicates patient and family were eager to return home later today. Started initial discharge plan assessment with information available on chart; family not at bedside this afternoon. Patient lives w/sp in [facility] in all aspects at her baseline. Therapies recommending SNF vs Home w and HH r/t patient's confusion. CM team will plan to follow clinical course closely. r/o need for HH at discharge, discuss plan with patient's family. LARRY Thomas Discharge Planning/Care Management CM Discharge Assessment Start: 10/05/23 14:21 Freq: Status: Active Protocol: Document 10/05/23 14:21 ROSENDA (Rec: 10/05/23 14:25 ROSENDA [id number]) Discharge Planning Assessment Assigned Experience Planning Strategist LARRY Torres DPOA/Assigned Designee Name Zaki Castro, spouse Contact Information [phone] Advance Directives? Yes Advance Directives on File Yes History Provided By Patient,Family Member, Significant Other Prior Living Arrangements House Household Members spouse Type of transporation used prior to Drives own vehicle admit Independent with ADL's Yes Is patient alert and oriented? Yes Patient/Family Preference Home with Home Health Barriers to Discharge Yes Comment Patient with confusion post operatively which is not her baseline, follow for discussion with family Discharge Plan Home with Home Health Transportation Arrangement Family Additional Comment r/o need for HH closer to [place], discuss with patient and family
--- NOTE | 2023-10-05 16:29 | PC.NURSE ---
Cancel Discharge: Several issues - Changes in mentation, is oriented when questioned, however is mixed up on date and time. thought it was night time. SIt's bkft time, really? Repeats same questions. Doesn't call for assist, tries to get up on own. Has been shown call light but forgets to use. SOh thats right, I forgot to call. Must have chair alarm and bed alarm at all times. Has difficulty following directions. Appears more disoriented after narcotic meds. Family reports this is new. Second concern - Bp as low as 98/61 to as high as 151/71. BP labile. Her antihypertensives were held last night. BP this am with a systolic of 109. She is sl dizzy when up, has difficulty controlling the rt leg, the rt leg wants to buckle underneath her. She did not pass physical therapy. Her changes in mentation has made directing her more difficult. Third concern - a few red casts or red debris? has been seen in uop. Pt was a diff cath and there were [address] in and out catheter previous shift. Seems to have some freq urination, but pt denies this or pain w/voiding, could be trauma from attempts instead of infection. Dr. Medellin called and made aware of changes in pt. See new orders. Discharge cancelled, UA obtained and sent to lab. Will try ultram. So far pt has been comfortable with starting the celebrex. She doesn't want to use something unless she needs it. She knows it is available. Will cont to monitor LOC. Pt was able to come off oxygen today. Have spot checked pt through out the day. She has remained at 92% or greater.
[2023-10-05 17:05] LABS: Bacteria Urine None Seen; RBC Urine None Seen (0-5/HPF); Squamous Epithelial Cell Urine None Seen (0-5/HPF); Urine Volume 10mL (spun); WBC Urine None Seen (0-5/HPF)
[2023-10-05 17:06] LABS: Culture Indicated Urine Cult Not Indicated; Renal Epithelial Cells Urine 0-1/HPF (0-1/HPF)
[2023-10-05] MEDS: TRAMADOL 50 MG TABLET PO (18:44)
[2023-10-05] MEDS: CYCLOBENZAPRINE 10 MG TABLET 5 MG PO (18:45)
[2023-10-05 20:00] VITALS: BP 117/59; PULSE 64; RESP 22; TEMP 36.9; O2SAT 95
[2023-10-05 20:26] VITALS: BP 117/59
[2023-10-05] MEDS: ATORVASTATIN 20 MG TABLET 10 MG PO (20:26)
[2023-10-05] MEDS: ESCITALOPRAM 10 MG TABLET 20 MG PO (20:26)
[2023-10-05] MEDS: SODIUM CHLORIDE 0.9% FLUSH 10 ML IV (20:27)
--- NOTE | 2023-10-05 23:12 | PC.NURSE ---
Patient alert but more confused that last night (day RN reported she was more confused during day as well and MD was informed). Oriented except did not know her age, stated she is in a mcc, and did not remember having had a surgery. She stated they think I'm demented and when asked why, she stated because I can't carry on a conversation. Also told RN 3 times in 5 minutes that she had dropped her phone although each time it was on her bedside table. She also reported seeing a gold pin on the floor in front of my grandmother's door while she sat up in the bed and pointed toward the [place]. Breath sounds CTA with RA sat of 95%. HRR; BP meds held again tonight as reportedly with low BP during day shift and now at 117/59. Denied nausea. BT present and is passing flatus. Denied dysuria when voiding. Able to move self in bed but is requiring walker and 2 assists to get up to BSC; she is slow and needs continual cueing to pull self up to sitting position, proper use of walker and moving feet to get to proper position on commode and back into bed. Stated pain was 6/10 but then reports her pain improved after being up to BSC because I didn't fall and I didn't hurt you. Was medicated at shift change with Tramadol + Flexeril and attempting to give meds sparingly related to confusion. CMS is intact although ROM is compromised due to surgery. Was wearing bilateral calf SCD's but removed when last up as she stated they were too hot. Fall risk score is high and bed alarm is activated.
[2023-10-06] MEDS: LEVOTHYROXINE 50 MCG TABLET PO (06:20)
[2023-10-06 07:51] VITALS: O2SAT 93
[2023-10-06] MEDS: CELECOXIB 200 MG CAPSULE PO (09:06)
[2023-10-06] MEDS: TRAMADOL 50 MG TABLET PO (09:06)
[2023-10-06] MEDS: DOCUSATE 100 MG CAPSULE PO (09:07)
[2023-10-06] MEDS: ASPIRIN EC 81 MG TABLET PO (09:07)
[2023-10-06] MEDS: SODIUM CHLORIDE 0.9% FLUSH 10 ML IV (09:07)
--- NOTE | 2023-10-06 10:59 | PT.IPTN ---
Current Diagnoses Unilateral primary osteoarthritis, right knee (10/04/23) Surgery Performed Operation Date: 10/04/23 12:30 Actual Procedures p Total Knee Arthroplasty - Robot(Right) - Mary Medellin MD Physical Therapy Treatment Note M2 PT-IP Current Condition Start: 10/05/23 12:44 Freq: NEEDED Status: Active Protocol: Document 10/05/23 10:10 AB (Rec: 10/05/23 12:59 AB [id number]) Physical Therapy Current Condition Current Condition Evaluation Date 10/05/23 Treatment Diagnosis s/p R TKA; difficulty in walking Onset Date 10/04/23 M3 PT-IP Subjective Start: 10/05/23 12:44 Freq: NEEDED Status: Active Protocol: Document 10/06/23 10:10 KS (Rec: 10/06/23 12:27 KS [id number]) Subjective Physical Therapy Visit Type Type Treatment Note Visit Start Time 10:10 Visit Stop Time 10:59 Number of SURGICAL SERVICES ASST Visits 2 Physical Therapy Visit Comments Patient Comments Pts and two sons present for caregiver training . Therapy Pain Assessment Pain When Pain Assessed At Rest Pain Present Pain Present Pain Reported Location right knee Intensity 6 Scale Used Numeric (0 - 10) Pain Management Techniques Distraction,Elevation,Re- positioning,Timing of Activity with Medications M4 PT-IP Mobility and Gait Start: 10/05/23 12:44 Freq: NEEDED Status: Active Protocol: Document 10/06/23 10:10 KS (Rec: 10/06/23 12:27 KS [id number]) PT-Bed Mobility Assessment Sit to Supine Sit to Supine Minimal Assistance,1 Person Assistance Scooting Scooting to Edge of Bed Standby Assistance PT-Transfer Assessment Sit to and From Stand Sit to and from Stand Moderate Assistance,1 Person Assistance,Use of Upper Extremities Equipment Transfer Assistive Device Gait Belt,Front Wheeled Walker Orthotic/Prosthetic Devices or Brace: No Transfers Transfer Destination Bed Transfer Technique Pt ambulated Transfer Ability Level of Assist Moderate Assistance,1 Person Assistance,2 Person Assistance ,Use of Upper Extremities Comments Mobility Comments Pt in chair upon arrival, reporting 6/10 pain but willing to work w/ PT. Pts 2 sons and present and daughter on speaker phone. Demonstrated gaitbelt application and technique for sit<>stands, ambulation, bed mobility, and transfers to pts marsha who was able to complete. Pt required Mod A for sit<>stand, Min A for ambulation, and Mod A for platform step w/ FWW. Pt forgetful and needs step by step commands or reminders to complete tasks safely. She was able to ascend/descend 1 step w/ FWW, Mod A and cues. Pt jus thas one step leading into her house and can stay downstairs temporarily. Pt and her family feel they can assist her up one step and into home and will place a chair for pt to rest inside if needed. Pt returned to bed, provided Min A for LE elevation into bed. Gait Assessment Gait Gait Assistance Required: Minimum Assistance,1 Person Assist Distance (Feet) 30 Able to Maintain Weight Bearing Status Yes During Gait Assistive Devices Assistive Device Gait Belt,Front Wheeled Walker Orthotic/Prosthetic Devices or Brace: No Gait Deviations General Gait Pattern Antalgic,Decreased Stride Length,Decreased Feet Clearance,Flexed Trunk Factors Limiting Gait Function Factors Limiting Gait Function Decreased Activity Tolerance, Decreased Strength,Difficulty Following Directions,Limited Range of Motion,Pain,Poor Balance,Poor Safety Awareness Comments Gait Comments Frequent cues to maintain correct FWW positioning. Stair Climbing Assessment Evaluation Level of Assist On Stairs Moderate Assistance,1 Person Assistance Devices Stair Climbing Assistive Devices Front Wheel Walker Technique/Endurance Stair Climbing Direction Ascend and Descend Stair Climbing Technique Step to Step Number of Steps Climbed 1 Stair Climbing Set # Repetitions (reps) 1 Comments Stair Climbing Comments Pt completed platform step w/ FWW and Mod A for FWW mgmt and step by step commands. Pts son and feel safe to assist pt up one step into home, can drive car very close to one step to avoid far distance walking, and will place a chair inside the doorway so pt can rest upon completing step. Pt feels capable to complete as well. PT-Balance Assessment Sitting Balance and Reactions Static Sitting Balance Ability Good Dynamic Sitting Balance Ability Good Standing Balance and Reactions Static Standing Balance Ability Fair Dynamic Standing Balance Ability Poor Device Used FWW M5 PT-IP Objective Assessments Start: 10/05/23 12:44 Freq: NEEDED Status: Active Protocol: Document 10/05/23 10:10 AB (Rec: 10/05/23 12:59 AB [id number]) Orientation Orientation/Cognition Level of Alertness Confusional State Orientation Name Safety Awareness Decreased Safety Awareness Memory Description Short Term Impaired Gross Range of Motion Lower Extremity ROM Assessment Within Functional Limits Strength Lower Extremity Strength Assessment Right Impaired Hip 3+/5 Knee 3+/5 Muscle Tone Muscle Tone WNL Yes M6 PT-IP Treatment Start: 10/05/23 12:44 Freq: NEEDED Status: Active Protocol: Document 10/06/23 10:10 KS (Rec: 10/06/23 12:27 KS [id number]) Physical Therapy Treatment Education Education Provided Precautions,Weight Bearing Status,Safety Other Treatments Other Treatment Performed Completed caregiver training w / pts sons and spouse. Discussed at home safety. Recommended HH. M7 PT-IP Assessment and Plan Start: 10/05/23 12:44 Freq: NEEDED Status: Active Protocol: Document 10/06/23 10:10 KS (Rec: 10/06/23 12:27 KS [id number]) PT Summary Assessment and Plan Potential Rehabilitation Potential Fair Summary Impairments Pain,ROM,Strength,Balance, Coordination,Sensation,Tone, Cognition,Bed Mobility, Transfers,Gait,Activity Tolerance Progress Towards Goals Slow Progress due to Pain Assessment Summary Pt still somewhat confused and forgetful but was able to follow cues and required less assistance today. SHe was able to complete caregiver training and stair training w/ her and sons. Her daughter will be staying w/ pt as long as needed as well. Mod A for sit<>stand and stairs, Min A for ambulation and bed mobility. Pt will require HHPT as it will be difficult initially to attend outpatient appointments. She also needs 24/7 assistance. Goals Bed Mobility Goal Minimal Assistance Transfer Goal Minimal Assistance,Front Wheeled Walker Gait Goal Minimal Assistance,Front Wheel Walker Gait Distance 50 Other Goals improve bed mobility, transfers and ambulation using LRAD ~ 150 ft SBA up/down 1 step using FWW SBA up/down 14 stteps B rails SBA Days to Meet Goals 10 Frequency of Treatment Frequency Of Treatment Twice a Day Treatment Plan Physical Therapy Treatment Plan Bed Mobility Training,Transfer Training,Gait Training, Therapeutic Exercise,Balance Retraining,Post Op Education, Discharge Planning,Hot or Cold Pack,Neuromuscular Re-ed, Coordination Retraining,Manual Therapy Weight Bearing Status Weight Bearing Status Weight Bear as Tolerated Allowed Weight Bearing Amount (enter % RLE WBAT or #) (%) Recommendations To Nursing Amount of Assist Needed 1 Person Assist Discharge Recommendations PT Discharge Recommendations Home with 24/7 Assist Available,Home Health Transportation Needs at Discharge Private Vehicle,Wheelchair/ Cabulance
--- NOTE | 2023-10-06 11:33 | CM.DPC ---
DCP Discharge Home with HH Per Ortho MD, pt still with some confusion likely due to anesthesia and medically stable to d/c home today after PT. Per [employer], completed CG training with spouse and two sons today and pt still needing regular cueing due to confusion and impulsivity and not remembering her precautions. PT recommending 25/03 and HH. SW met bedside with pt, spouse, 2 adult sons, and adult Dtr was on speaker phone and explained role. They confirm that they are aware that pt will likely d/c home today and their preference is home with family assist and agreeable with d/c home today. Sons confirm that they will stay tonight and then Dtr will arrive tomorrow and stay however long is needed so sons can get back to their families and work. SW discussed HH recommendation and services and frequency and they confirm that pt was scheduled with outpt PT through [facility] in [place] for later this week but family and pt preference is HH initially due to pt's confusion and mobility needs and feel pt will be considered homebound. Pt denies any hx of HH or SNF and SW provided the HH Choice list and pt and spouse have no HH preference between [facility] who both cover [facility]. SW made [facility] referral based on Vendor Calendar and no pt preference and faxed clinicals along with completed F2F and HH orders for RN/PT/HR INTERNSHIP and called with new referral as they have 7 openings for [facility] this week. SW provided [facility] brochure. [facility] to [facility]pone outpt PT while doing HH. SW updated RN. Plan: Patient to d/c home today via spouse POV with adult sons to stay for additional assist and [facility] to start this week. LARRY Newton
--- NOTE | 2023-10-06 11:49 | P.PN_ITS ---
Subjective Subjective Interval history: Her discharge was held yesterday as she had some issues with poor mobility, pain control and adequately mobilizing. She notes she is better today. She has a supportive and 2 sons at home. Her daughter will be available next week. Exam Vital Signs (past 8 hours): - 10/06/23 07:51 Pulse Oximetry 93 Oxygen Delivery Method Nasal Cannula Oxygen Flow Rate 2 Oxygen Delivery Method Nasal Cannula Oxygen Flow Rate 2 Narrative Exam Narrative: She is resting comfortably in bed. She is alert she is oriented. She can do a straight leg raise. Her calves are benign bilaterally. She has mild swelling in the knee. Her dressing is dry Objective Labs 10/05/23 05:00 Labs: Laboratory Results - last 24 hr 10/05/23 16:30 Urine RBC None seen Urine WBC None seen Ur Squamous Epith Cells None seen Ur Renal Epithelial Cell 0-1/hpf Urine Bacteria None seen Ur Culture Indicated? Cult not indicated Vol Urine Centrifuged 10ml (spun) COUNT INCLUDES THE [facility] Medical History (Updated 09/26/23 @ 07:30 by Doretha Urena RN) HLD (hyperlipidemia) History of Mohs micrographic surgery for skin cancer Arthritis Cystocele with rectocele Basal cell carcinoma Depression Chronic diarrhea HTN (hypertension) Psoriatic arthritis Surgical History (Updated 09/25/23 @ 10:11 by Doretha Urena RN) Hx of bilateral cataract extraction History of biopsy Hx of colonoscopy History of excision of pilonidal cyst S/P cataract extraction and insertion of intraocular lens History of orthopedic surgery History of lumbar spinal fusion H/O laminectomy Hx of fusion of cervical spine History of hysterectomy Hx of tonsillectomy Status post hemorrhoidectomy (09/16/17) Social History household members: spouse Smoking Status: Former smoker alcohol intake: current Assessment & Plan Post-op Postoperative Procedures: Procedures Operation Date: 10/04/23 12:30 Actual Procedure Side Surgeon p Total Knee Arthroplasty - Robot Right Mary Medellin MD Postoperative status: doing well Postoperative plan: discharge Postoperative plan narrative: She is doing well at this point and appears stable for discharge. We will remove her scopolamine patch as she is not having nausea and does have some mild increased confusion. We are going to submit a referral for home health as she has 14 steps at home. Quality VTE Deep Vein Thrombosis/Pulmonary Embolism Present on Admission: No
[2023-10-06] MEDS: CYCLOBENZAPRINE 10 MG TABLET 5 MG PO (13:00)
--- NOTE | 2023-10-06 13:27 | PC.NURSE ---
Day shift: Discharge instructions gone over with patient and patient's family after PT cleared patient for discharge and MD Medellin wrote discharge orders. PIV removed, no tele. Patient and patient's spouse stated understanding, all questions answered. All belongings with patient. PCT Lona escorted patient via wheelchair to exit where spouse to drive her home.
== END 2023-10-06 13:37 | disposition home or self-care (01) ==
LOC: OR 11:05 → AC 11:07
PROVIDERS: PCP Family Medicine; Referring Provider Orthopaedic Surgery; Visit Provider Orthopaedic Surgery
PROC: 0SRC0JZ Replacement of Right Knee Joint with Synthetic Substitute, Open Approach (ICD-10-PCS; CPT 27447; principal; 2023-10-04 12:30)
DX: M17.11 Unilateral primary osteoarthritis, right knee (principal); I10 Essential (primary) hypertension; F32.A Depression, unspecified; M06.9 Rheumatoid arthritis, unspecified; M79.7 Fibromyalgia; E66.9 Obesity, unspecified; Z68.31 Body mass index [BMI] 31.0-31.9, adult; Z87.891 Personal history of nicotine dependence
CPT/HCPCS: 27447; 36415; 73560; 81015; 85014; 85018; 97116; 97162; 97530; C1776; C9290; J0171; J0330; J0690; J1100; J1170; J2405; J2704; J3010

== ENCOUNTER → 2024-03-02 13:00 | Outpatient (CLI) | payer MEDICARE, OTHER, SELFPAY ==
[2023-10-04 11:11] VITALS: BMI 31.1
--- NOTE | 2024-03-02 13:01 | DI.CT.S_ITS ---
PROCEDURE: CT KNEE RIGHT WITHOUT CON INDICATIONS: RIGHT KNEE PAIN TECHNIQUE: Noncontrast 1-1.5 mm axial sections acquired from the mid-patella to the proximal tibia, with coronal and sagittal reformats. COMPARISON: [facility], CR, XR KNEE 4+ VIEWS RIGHT, 10/16/2023, 13:58. FINDINGS: Image quality: Excellent. Bones: Status post right total knee arthroplasty, in near anatomic alignment. No hardware complication. No periprosthetic fracture. No cortical erosion or periosteal thickening to suggest osteomyelitis. Soft tissues: Moderate knee effusion. Mild prepatellar subcutaneous edema. The quadriceps tendon is grossly intact. Nondiagnostic evaluation of the patellar tendon given metallic artifact. IMPRESSION: Status post right total knee arthroplasty, in near anatomic alignment. No hardware complication. Moderate knee effusion. Sterility cannot be established based on imaging. Dictated by: Puja Clements M.D. on 03/02/2024 at 20:13 Approved by: Puja Clements M.D. on 03/02/2024 at 20:17
== END ==
PROVIDERS: PCP Family Medicine; Referring Provider Family Medicine; Visit Provider Family Medicine
DX: M25.561 Pain in right knee (principal); M25.461 Effusion, right knee; Z96.651 Presence of right artificial knee joint
CPT/HCPCS: 73700

== ENCOUNTER → 2024-07-10 14:27 | Outpatient (CLI) | payer MEDICARE, OTHER, SELFPAY ==
[2023-10-04 11:11] VITALS: BMI 31.1
--- NOTE | 2024-07-10 14:32 | DI.RAD.S_ITS ---
PROCEDURE: XR HIP W PEL IF DONE RT 2V INDICATIONS: BURSITIS TECHNIQUE: AP pelvis with lateral view(s) of the right hip(s). COMPARISON: None. FINDINGS: Bones: CAM configuration right femoral head neck junction may predispose to femoral acetabular impingement and labral tear. SI and hip joints: Mild degeneration both SI and hip joints appreciated. L4-5 anterior/posterior fusion changes noted . there is severe L3-4 and L5-S1 degenerative disc disease. Soft tissues: No soft tissue swelling, calcification or mass. IMPRESSION: Chronic findings as described. Dictated by: Bienvenido Bautista M.D. on 07/13/2024 at 9:38 Approved by: Bienvenido Bautista M.D. on 07/13/2024 at 9:40
--- NOTE | 2024-07-10 14:32 | DI.RAD.S_ITS ---
PROCEDURE: XR KNEE RT 3V INDICATIONS: KNEE PAIN TECHNIQUE: 3 views of the knee were acquired. COMPARISON: [facility], CR, XR KNEE RT 1TO2V, 10/04/2023, 16:40. FINDINGS: Bones: A 9 mm ossification , lateral to the patella on the sunrise view , may represent a remote avulsion fracture or dystrophic calcification. Joints: Total knee prosthesis is anatomically aligned without loosening or infection. Soft tissues: Normal IMPRESSION: Total knee prostheses-unremarkable. . Dictated by: Bienvenido Bautista M.D. on 07/13/2024 at 9:41 Approved by: Bienvenido Bautista M.D. on 07/13/2024 at 9:42
== END ==
PROVIDERS: PCP Family Medicine; Referring Provider Family Medicine; Visit Provider Family Medicine
DX: M16.0 Bilateral primary osteoarthritis of hip (principal); M47.818 Spondylosis without myelopathy or radiculopathy, sacral and sacrococcygeal region; M25.561 Pain in right knee; M70.61 Trochanteric bursitis, right hip; Z96.651 Presence of right artificial knee joint
CPT/HCPCS: 73502; 73562

== ENCOUNTER → 2024-08-03 13:20 | Outpatient (CLI) | payer MEDICARE, OTHER, SELFPAY ==
[2023-10-04 11:11] VITALS: BMI 31.1
--- NOTE | 2024-08-03 13:20 | DI.MG.S_ITS ---
BILATERAL DIGITAL SCREENING MAMMOGRAM 3D/2D WITH CAD: 08/03/2024 CLINICAL: Routine screening. Family history of breast cancer. Comparison is made to exams dated: 07/31/2023 mammogram, 03/20/2021 mammogram, 06/12/2022 mammogram, 04/05/2020 mammogram, 03/14/2020 mammogram, and 12/02/2018 mammogram - [facility]. There are scattered areas of fibroglandular density (category b / 25%-50% glandular tissue). Current study was also evaluated with a Computer Aided Detection (CAD) system. No significant masses, calcifications, or other findings are seen in either breast. There has been no significant interval change. IMPRESSION: NEGATIVE There is no mammographic evidence of malignancy. A 1 year screening mammogram is recommended. Based on the Tyrer Cuzick model (a risk assessment model) the patient's lifetime risk is 10.3% and her 10 year risk is 9.3%. According to the ACR, ACS, and NCCN guidelines, an annual breast MRI exam along with mammogram is recommended if the patient's lifetime risk is 20% or greater. This exam was interpreted at Station ID: [id number]. NOTE: For mammograms, a report in lay terms will be sent to the patient. Approximately 15% of breast malignancies will not be visualized mammographically. In the management of a palpable breast mass, a negative mammogram must not discourage biopsy of a clinically suspicious lesion. Electronically Signed By: Merissa Reilly M.D., Ph.D. joleen/clinton:08/05/2024 12:37:44 letter sent: Normal Exam ACR BI-RADS Category 1: Negative
== END ==
PROVIDERS: PCP Family Medicine; Referring Provider Family Medicine; Visit Provider Family Medicine
DX: Z12.31 Encounter for screening mammogram for malignant neoplasm of breast (principal); Z80.3 Family history of malignant neoplasm of breast
CPT/HCPCS: 77063; 77067

== ENCOUNTER → 2024-08-17 11:18 | Outpatient (CLI) | payer MEDICARE, OTHER, SELFPAY ==
[2023-10-04 11:11] VITALS: BMI 31.1
--- NOTE | 2024-08-17 11:20 | DI.MRI.S_ITS ---
PROCEDURE: MR HIP RT WO CON INDICATIONS: LOW BACK PAIN TECHNIQUE: Noncontrast coronal T1 spin echo and STIR through the bony pelvis. Coronal and axial T2 fast spin echo with fat saturation, sagittal T1 spin echo, and oblique axial T2 fast spin echo with fat saturation through the hip. COMPARISON: [facility], CR, XR HIP W PEL IF DONE RT 2V, 07/10/2024, 14:45. FINDINGS: Image quality: Excellent. Bones and joints: Posterior fusion instrumentation of the lower lumbar spine, incompletely evaluated. Degenerative disc disease of the lower lumbar spine, incompletely evaluated. No marrow edema of the visualized lower lumbar spine. The sacrum is intact. Bilateral sacroiliac joints are unremarkable. Mild degenerative changes of bilateral hips. No acute fracture or dislocation of either hip. Tendons and ligaments: The right iliopsoas, and adductor, and hamstring tendons unremarkable. Low-grade tear of the right gluteal minimus. Full-thickness, partial width tear of the right gluteal medius at the greater trochanteric insertion, with superior tendon retraction of approximately 2.8 cm. Labrum and cartilage: Tear of the anterior labrum. No paralabral cyst. Soft tissues: The uterus is not visualized, likely surgically absent. IMPRESSION: 1. Mild degenerative changes of bilateral hips. 2. Low-grade tear of the right gluteal minimus at the greater trochanteric insertion. 3. Full-thickness, partial width tear of the right gluteal medius tendon at the greater trochanteric insertion, with superior tendon retraction. Dictated by: Puja Clements M.D. on 08/17/2024 at 13:58 Approved by: Puja Clements M.D. on 08/17/2024 at 14:06
--- NOTE | 2024-08-17 11:35 | DI.MRI.S_ITS ---
PROCEDURE: MR LUMBAR SPINE WO CON INDICATIONS: LOW BACK PAIN TECHNIQUE: Noncontrast sagittal T1 spin echo and T2 fast echo, sagittal STIR, and T2 fast spin echo through the lumbar spine. In cases with scoliosis, additional coronal T2 fast spin echo may be performed. COMPARISON: None. FINDINGS: Image quality: Excellent. Alignment and Curvature: Mild levoconvex curvature. Mild grade 1 anterolisthesis at L4-5 and grade 1 retrolisthesis at L5-S1. Bone Marrow: Postsurgical changes are seen from posterior fixation at L4-5 with associated metal artifact. Marrow is of normal overall signal. No acute vertebral body compression fractures. Spinal Cord: Conus medullaris terminates at the L1 level. Visualized cord demonstrates normal signal and size. Paraspinous Soft Tissues: No paravertebral masses. Grade 2 fatty infiltration of the paraspinous musculature. T12-L1: Disc desiccation and circumferential disc bulging as well as mild bilateral facet hypertrophy, which result in mild narrowing of the spinal canal and mild bilateral neural foraminal narrowing. L1-L2: Loss of disc space height with circumferential disc-osteophyte complex and mild bilateral facet hypertrophy. Findings result in mild narrowing of the spinal canal as well as akew-eu-itgjoyav right and mild left neural foraminal narrowing. L2-L3: Loss of disc space height with circumferential disc-osteophyte complex as well as moderate bilateral facet hypertrophy and buckling of the ligamentum flavum. Findings result in fyrg-cy-pcebmpao narrowing of the spinal canal with crowding of the lateral recesses that is greater on the right than on the left as well as moderate to severe right and mild left neural foraminal narrowing. L3-L4: Loss of disc space height with circumferential disc-osteophyte complex as well as moderate bilateral facet hypertrophy and buckling of the ligamentum flavum findings result in moderate to severe narrowing of the spinal canal with effacement of the lateral recesses as well as moderate to severe right and qlkd-[id number]-yhpzxowd left neural foraminal narrowing. L4-L5: Postsurgical changes with decompression of the spinal canal. Bony fusion across the bilateral facet joints.. There is moderate bilateral neural foraminal narrowing without significant spinal canal stenosis. L5-S1: Loss of disc space height with posterior disc-osteophyte complex and hwty-eh-ylotwxso bilateral facet hypertrophy. Findings result in moderate to severe bilateral neural foraminal narrowing without significant spinal canal stenosis. IMPRESSION: 1. Postsurgical changes from posterior fixation at the L4-5 level. 2. Moderate to severe spinal canal narrowing at the L3-4 level. 3. High-grade neural foraminal narrowing at the L2-3 and L3-4 levels on the right and at the L5-S1 level bilaterally. 4. Additional multilevel degenerative disc disease and facet hypertrophy as described in detail in the body report. Approved by: Anthony Dickerson M.D. on 08/17/2024 at 16:21
== END ==
PROVIDERS: PCP Family Medicine; Referring Provider Family Medicine; Visit Provider Family Medicine
DX: M51.360 Other intervertebral disc degeneration, lumbar region with discogenic back pain only (principal); M48.061 Spinal stenosis, lumbar region without neurogenic claudication; M48.07 Spinal stenosis, lumbosacral region; M47.816 Spondylosis without myelopathy or radiculopathy, lumbar region; M47.817 Spondylosis without myelopathy or radiculopathy, lumbosacral region; S76.011A Strain of muscle, fascia and tendon of right hip, initial encounter; Z98.1 Arthrodesis status
CPT/HCPCS: 72148; 73721

== ENCOUNTER → 2025-01-04 12:49 | Outpatient (CLI) | payer MEDICARE, OTHER, SELFPAY ==
[2024-10-26 14:43] VITALS: BMI 31.1
--- NOTE | 2025-01-04 12:53 | DI.RAD.S_ITS ---
PROCEDURE: XR LUMBAR SPINE MIN 4V INDICATIONS: BACK PAIN TECHNIQUE: 6 views of the lumbar spine were acquired, including bilateral oblique views. COMPARISON: [facility], CR, XR LUMBAR SPINE WITH FLEXION EXTENSION 5 VIEWS, 10/22/2024, 14:32. FINDINGS: Bones: 5 nonrib-bearing vertebrae are present. There is posterior fusion at L4-5 level with surgical hardware in place. No evidence of hardware loosening or failure.. Straightening of normal lumbar lordosis. Mild levoscoliosis of lumbar spine with apex at L3 level unchanged from prior study. No vertebral body compression fractures. Loss of disc height, degenerative endplate changes and bilateral facet arthrosis throughout lumbar spine is seen. No suspicious bony lesions. Soft tissues: Overlying bowel gas pattern is normal. No suspicious soft tissue calcifications. Oblique images: No pars defects. Bilateral bony foraminal stenosis are noted at L3-4 through L5-S1 levels. IMPRESSION: 1. Prior fusion at L4-5 level. Stable lumbar spine alignment. No acute compression fracture. No gross hardware loosening or failure. 2. Moderate degenerative disc disease throughout lumbar spine. Suggestion of bilateral bony foraminal stenosis at L3-4 through L5-S1 levels seen on oblique views. No gross pars defect. Dictated by: Malik Tatum M.D. on 01/04/2025 at 13:31 Approved by: Malik Tatum M.D. on 01/04/2025 at 14:04
== END ==
PROVIDERS: PCP Family Medicine; Referring Provider Physical Medicine & Rehabilitation; Visit Provider Physical Medicine & Rehabilitation
DX: M51.369 Other intervertebral disc degeneration, lumbar region without mention of lumbar back pain or lower extremity pain (principal); M54.9 Dorsalgia, unspecified; M17.12 Unilateral primary osteoarthritis, left knee; T84.012A Broken internal right knee prosthesis, initial encounter; R26.81 Unsteadiness on feet; Z98.890 Other specified postprocedural states; Z98.1 Arthrodesis status
CPT/HCPCS: 72110; 99214

== ENCOUNTER → 2025-01-06 12:37 | Outpatient (CLI) | payer MEDICARE, OTHER, SELFPAY ==
[2024-10-26 14:43] VITALS: BMI 31.1
--- NOTE | 2025-01-06 12:38 | DI.MRI.S_ITS ---
PROCEDURE: MR HEAD/BRAIN WO CON INDICATIONS: probable CVA TECHNIQUE: Non-contrast axial T1 spin echo, axial T2 fast spin echo, sagittal and axial FLAIR, coronal T2 fast spin echo, axial gradient echo, axial diffusion and ADC through the brain. COMPARISON: None. FINDINGS: Image quality: Excellent. CSF spaces: The ventricles are abnormally prominent, right worse than left.. Basal cisterns are patent. No extra-axial fluid collections. Brain: No intracranial bleeds or mass effects. There is moderate chronic small vessel ischemic change. Moderate brain parenchymal volume loss is seen. Brainstem appears normal. Diffusion-weighted images show no acute infarct. No chronic ischemic insults. Normal intravascular flow voids are present. Skull and face: Calvarial bone marrow is normal in signal. Orbits are normal. Note is made of bilateral lens replacements. Sinuses: Sinuses and mastoids are clear. IMPRESSION: No findings of acute or subacute infarction can be seen. No prior territorial infarct can be seen. Prominent lateral ventricles are seen, which are larger than would be expected, given the degree of sulcal atrophy. Please consider normal pressure hydrocephalus. Dictated by: Duane Tirado M.D. on 01/06/2025 at 12:44 Approved by: Duane Tirado M.D. on 01/06/2025 at 12:45
== END ==
LOC: MRI 12:38
PROVIDERS: PCP Family Medicine; Referring Provider Physical Medicine & Rehabilitation; Visit Provider Physical Medicine & Rehabilitation
DX: G45.9 Transient cerebral ischemic attack, unspecified (principal)
CPT/HCPCS: 70551

== ENCOUNTER 2025-07-09 12:40 | Emergency (ER) | payer MEDICARE, OTHER, SELFPAY ==
[2024-10-26 14:43] VITALS: BMI 31.1
[2025-07-09 12:45] VITALS: BP 132/60; PULSE 63; RESP 18; TEMP 36.3; O2SAT 98; BMI 27.0
--- NOTE | 2025-07-09 12:49 | ED_ITS ---
HPI - Abdominal Pain
--- NOTE | 2025-07-09 12:49 | DI.CT.S_ITS ---
PROCEDURE: CT ABDOMEN PELVIS W CON
--- NOTE | 2025-07-09 12:49 | ED.ABDPAIN ---
HPI - Abdominal Pain General Chief Complaint: Abdominal Pain Stated Complaint: R side pain, 1 wk getting worse Time Seen by Provider: 07/09/25 12:48 History of Present Illness HPI narrative: 74-year-old female atrial fibrillation on Eliquis, recent [employer] shunt placed for which he is on hydrocodone presents today with intermittent right lower quadrant and right hip pain for the past 2 weeks. Patient denies nausea, vomiting, diarrhea, chest pain, shortness of breath, back pain, urinary complaints, fever, chills, bodyaches. Other than what is stated 14 point review of system is negative. Related Data Home Medications ?Medication ?Instructions ?Recorded ?Confirmed lisinopril 10 mg tablet 10 mg PO BEDTIME ##0 06/14/17 01/04/25 methotrexate sodium 2.5 mg tablet 20 mg PO QWEEK ##0 09/10/17 01/04/25 escitalopram oxalate 20 mg tablet 20 mg PO BEDTIME ##0 09/12/17 01/04/25 (Lexapro) levothyroxine 25 mcg tablet 50 mcg PO DAILY 05/20/23 01/04/25 ibuprofen 200 mg capsule 800 mg PO DAILY 09/25/23 01/04/25 Held on 01/04/25. Instructions: Home Medication placed on hold at Doctor's office atorvastatin 20 mg tablet 20 mg PO DAILY 01/04/25 01/04/25 risankizumab-rzaa 150 mg/mL 150 mg SUBCUT Q12W 01/04/25 01/04/25 subcutaneous pen injector (Skyrizi) Previous Rx's ?Medication ?Instructions ?Recorded celecoxib 200 mg capsule (Celebrex) 200 mg PO BID #60 caps 10/05/23 alprazolam 0.5 mg tablet (Xanax) 0.5 mg PO .COMPLEX PRN Pre MRI or 01/04/25 Procedure #5 tabs Allergies Allergy/AdvReac Type Severity Reaction Status Date / Time adhesive tape (ADHESIVE TAPE) Allergy Severe Rash Verified 01/04/25 14:30 hydrocodone (HYDROCODONE) Allergy Mild rash Verified 01/04/25 14:30 latex AdvReac Unknown Rash Verified 01/04/25 14:30 Review of Systems Review of Systems ROS Unobtainable: All systems reviewed & are unremarkable except as noted in HPI and below Patient History Medical History (Updated 07/09/25 @ 14:57 by Bienvenido Boyd DO) Normal pressure hydrocephalus Gait instability Left knee DJD Failed total knee, right TIA (transient ischemic attack) HLD (hyperlipidemia) History of Mohs micrographic surgery for skin cancer Arthritis Cystocele with rectocele Basal cell carcinoma Depression Chronic diarrhea HTN (hypertension) Psoriatic arthritis Surgical History Hx of bilateral cataract extraction History of biopsy Hx of colonoscopy History of excision of pilonidal cyst S/P cataract extraction and insertion of intraocular lens History of orthopedic surgery History of lumbar spinal fusion H/O laminectomy Hx of fusion of cervical spine History of hysterectomy Hx of tonsillectomy Status post hemorrhoidectomy (09/16/17) Social History household members: spouse Smoking Status: Former smoker alcohol intake: current Smoking Status: Former smoker alcohol intake frequency: a few times a week Exam Narrative Exam Narrative: GENERAL: [74] year old patient appears stated age. Well-developed patient, in mild distress. HEAD: Atraumatic. Normocephalic. EYES: Pupils equal round and reactive. Extraocular motions intact. No scleral icterus. No injection or drainage. ENT: Nose without bleeding, purulent drainage. Throat without erythema, tonsillar hypertrophy or exudate. Airway patent. NECK: Trachea midline. Non tender CARDIOVASCULAR: Regular rate and rhythm without murmurs, gallops, or rubs. RESPIRATORY: Clear to auscultation. Breath sounds equal bilaterally. No wheezes, rales, or rhonchi. GASTROINTESTINAL: Abdomen soft, RLQ TTP but neg [place] and neg chavez nondistended. EXTREMITIES: No edema or joint tenderness. BACK: Nontender without deformity or crepitance. No flank tenderness. NEURO: AOx3. SKIN: No rash or erythema of visible areas Initial Vital Signs Initial Vital Signs: Vital Signs Temperature 97.4 F L 07/09/25 12:45 Pulse Rate 63 07/09/25 12:45 Respiratory Rate 18 07/09/25 12:45 Blood Pressure 132/60 07/09/25 12:45 Pulse Oximetry 98 07/09/25 12:45 Oxygen Delivery Method Room Air 07/09/25 12:45 Course Orders Ordered: ED Orders 07/09/25 12:49 CT abdomen pelvis w con Stat EKG-12 Lead Stat 07/09/25 12:55 Complete Blood Count AUTO DIFF Stat Comprehensive Metabolic Panel Stat Lipase Stat Discontinued Medications Lactated Ringer's (Lactated Ringers) 1,000 mls @ 1,000 mls/hr IV BOLUS ONE Stop: 07/09/25 13:51 Last Admin: 07/09/25 14:01 Dose: 1,000 mls/hr Documented By: ELLA Ketorolac Tromethamine (Ketorolac 30 Mg/Ml Vial) 15 mg IV NOW ONE Stop: 07/09/25 12:53 Last Admin: 07/09/25 14:00 Dose: 15 mg Documented By: ELLA Ondansetron HCl (Ondansetron 4 Mg/2 Ml Inj) 4 mg IV NOW PRN PRN Reason: Nausea And Vomiting Ondansetron HCl (Ondansetron 4 Mg Odt) 4 mg PO NOW PRN PRN Reason: Nausea And Vomiting Vital Signs Vital signs: Vital Signs - 8 hr 07/09/25 15:24 Pulse Rate 54 L Respiratory Rate 16 Blood Pressure 147/65 H Pulse Oximetry 98 Oxygen Delivery Method Room Air MDM - Abdominal Pain Lab Data 07/09/25 12:55 07/09/25 12:55 Labs: Lab Results 07/09/25 Range/Units 12:55 WBC 4.3 L (4.5-11.0) X10^3/uL RBC 5.05 (4.0-5.2) X10^6/uL Hgb 14.2 (12.0-16.0) g/dL Hct 43.4 (36-46) % MCV 86.0 (80-100) fL MCH 28.2 (26-34) PG MCHC 32.7 (30-36) % RDW 18.6 H (11.6-14.8) % Plt Count 210 (150-400) X10^3/uL Neut % (Auto) 58.9 (50-75) % Lymph % (Auto) 25.4 (25-40) % Norton % (Auto) 8.6 (3-14) % Eos % (Auto) 4.3 H (2-4) % Baso % (Auto) 2.8 H (0-2) % Neut # (Auto) 2500 (9180-4832) /uL Lymph # (Auto) 1100 (2664-2456) /uL Norton # (Auto) 400 (0-900) /uL Eos # (Auto) 200 (0-450) /uL Baso # (Auto) 100 (0-100) /uL Sodium 140 (137-145) mmol/L Potassium 4.0 (3.4-5.1) mmol/L Chloride 108 H (98-107) mmol/L Carbon Dioxide 25 (22-32) mmol/L BUN 15 (7-17) mg/dL Creatinine 0.78 (0.52-1.04) mg/dL Estimated GFR > 60 (>60) mL/min BUN/Creatinine Ratio 19.2 (6-22) Glucose 87 (70-99) mg/dL Calcium 9.4 (8.4-10.2) mg/dL Total Bilirubin 0.9 (0.2-1.3) mg/dL AST 25 (14-36) IU/L ALT 20 (<35) IU/L Alkaline Phosphatase 160 H (38-126) U/L Total Protein 7.7 (6.3-8.2) g/dL Albumin 4.0 (3.5-5.0) g/dL Globulin 3.7 (1.7-4.1) g/dL Albumin/Globulin Ratio 1.1 (1.0-2.8) Lipase 82 (23-300) U/L Point of care testing: Urine Dip Bedside Urine Glucose Negative Bedside Urine Bilirubin - Negative Bedside Urine Ketone - Negative Urine Specific [place] 1.005 Bedside Urine Occult Blood - Negative Bedside Urine pH 6.0 Bedside Urine Protein - Negative Bedside Urine Urobilinogen - Negative Bedside Urine Nitrite - Negative Bedside Urine Leukocytes - Negative Esterase Imaging Data CT scan - abdomen/pelvis: Radiologist's Impression: [place] [address] CT Scan Report Signed Patient: Nicole Castro MR#: [id number] : 1950 Acct:[id number] Age/Sex: 74 / F Date of Service: 07/09/25 Loc: ED Accession Number: [id number] Procedure: CT abdomen pelvis w con Ordering Provider: Bienvenido Boyd D.O. PROCEDURE: CT ABDOMEN PELVIS W CON INDICATIONS: RLQ pain TECHNIQUE: After the administration of intravenous contrast, axial sections acquired from the lung bases to the pubic symphysis. Coronal and sagittal reformats were performed. For radiation dose reduction, the following was used: automated exposure control, adjustment of mA and/or kV according to patient size. COMPARISON: None. FINDINGS: Image quality: Diagnostic. Lower Chest: No significant findings. ABDOMEN: Liver: No solid mass. Gallbladder: No radiopaque gallstones or wall thickening. Biliary ducts: No biliary dilation. Pancreas: No ductal dilation. Spleen: Size is within normal limits. Adrenal Glands: No adrenal nodules. Kidneys and Ureters: No hydronephrosis. No solid mass. No complex renal cystic lesion which requires follow up. Stomach and Bowel: Normal colonic caliber, without significant wall thickening. No right lower quadrant inflammatory change. Peritoneum: No abnormal intraperitoneal fluid. No free air. Ventral Wall: No significant ventral hernia. Abdominal Nodes: No retroperitoneal or mesenteric adenopathy by size criteria. Vessels: Aorta and inferior vena cava are normal in size. PELVIS: Pelvic Organs: Unremarkable. Bladder: No bladder wall thickening, accounting for underdistention. Pelvic Nodes: No enlarged lymph nodes. Miscellaneous: No inguinal hernias are seen. Peritoneal presumed dialysis catheter is present. Bones: No aggressive osseous abnormality. Leftward scoliotic curvature. IMPRESSION: No acute intra-abdominal or pelvic process. No right lower quadrant inflammatory change. ECG Data Interpretation: Sinus Adán HR 59 WV 156 QRS [address]-t wave change Unchanged from 05/07/23 MDM Narrative Medical decision making narrative: All lab work, vital signs, nurse triage note, medication list, previous ER visits, and all imaging studies reviewed. WBC 4.3 hemoglobin 14.2 platelets 210 sodium 140 potassium 4.0 chloride 108 CO2 25 BUN 15 creatinine 0.78 glucose 87 lipase 82. Urine was normal. CT abdomen showed no acute intra-abdominal or pelvic process. No acute right lower quadrant inflammatory change. Differential diagnosis appendicitis UTI kidney stone kidney infection diverticulitis constipation arthritis. Discharge Plan Departure Patient Disposition: Home Clinical Impression: Abdominal mass, RLQ (right lower quadrant) Instructions: DI for Abdominal Pain-Adult Activity Restrictions/Additional Instructions: Return with new or worsening symptoms. Follow up with PCP next week if no improvement in symptoms. Clear liquid diet advance as tolerated. Prescriptions: No Action lisinopril 10 MG tablet 10 mg PO BEDTIME Qty: 0 methotrexate sodium 2.5 MG tablet 20 mg PO QWEEK Qty: 0 Rx Instructions: Takes on Wednesdays escitalopram oxalate [Lexapro] 20 MG tablet 20 mg PO BEDTIME Qty: 0 levothyroxine 25 mcg tablet 50 mcg PO DAILY ibuprofen 200 mg Capsule 800 mg PO DAILY celecoxib [Celebrex] 200 mg Capsule 200 mg PO BID Qty: 60 0RF atorvastatin 20 mg tablet 20 mg PO DAILY Skyrizi 150 mg/mL pen injector 150 mg SUBCUT Q12W alprazolam [Xanax] 0.5 mg tablet 0.5 mg PO .COMPLEX MDD max 2 tabs/day PRN (Reason: Pre MRI or Procedure) Qty: 5 0RF Rx Instructions: 0.5 mg orally, Pre MRI or procedure Max dose 2 tabs Referrals: Sunil Pennington MD [Primary Care Provider, Family Practice] Stand Alone Forms: Patient Portal/API
[2025-07-09 13:06] LABS: Add Manual Diff / Slide Review NO; Hematocrit 43.4 % (36-46); Hemoglobin 14.2 g/dL (12.0-16.0); Lymphocytes Absolute Auto 1100 /uL (1100-4500); Mean Corpuscular HGB Conc 32.7 % (30-36); Mean Corpuscular Hemoglobin 28.2 PG (26-34); Mean Corpuscular Volume 86.0 fL (80-100); Platelet Count 210 X10^3/uL (150-400)
--- NOTE | 2025-07-09 13:11 | EKG_ITS ---
[facility]
[2025-07-09 13:21] LABS: Alanine Aminotransferase 20 IU/L (<35); Albumin 4.0 g/dL (3.5-5.0); Albumin Globulin Ratio 1.1 (1.0-2.8); Alkaline Phosphatase 160 U/L (38-126); Blood Urea Nitrogen 15 mg/dL (7-17); Calcium 9.4 mg/dL (8.4-10.2); Carbon Dioxide 25 mmol/L (22-32); Chloride 108 mmol/L (98-107); Estimated Glomerular Filt Rate > 60 mL/min (>60); Globulin 3.7 g/dL (1.7-4.1); Glucose 87 mg/dL (70-99); HEMOLYSIS < 15 (0-50); Lipase 82 U/L (23-300); Potassium 4.0 mmol/L (3.4-5.1); Sodium 140 mmol/L (137-145); Total Protein 7.7 g/dL (6.3-8.2)
[2025-07-09] MEDS: KETOROLAC 30 MG/ML VIAL 15 MG IV (14:00)
[2025-07-09] MEDS: LACTATED RINGERS 1,000 ML 1000 ML IV (14:01)
--- NOTE | 2025-07-09 15:23 | PC.NURSE ---
This RNs first interaction with patient, provided D/C instructions.
[2025-07-09 15:24] VITALS: BP 147/65; PULSE 54; RESP 16; O2SAT 98
== END 2025-07-09 15:25 | disposition home or self-care (01) ==
PROVIDERS: Emergency Provider Family Medicine; PCP Family Medicine
DX: R19.03 Right lower quadrant abdominal swelling, mass and lump (principal); Z79.01 Long term (current) use of anticoagulants; M25.551 Pain in right hip
CPT/HCPCS: 36415; 74177; 80053; 81003; 83690; 85025; 93005; 96374; 99284; J1885; J7120; Q9967